=== PATIENT | male | born 1960 | race African-American/Black ===

== ENCOUNTER 2017-08-25 17:38 | Observation (INO) | payer MEDICARE ==
[2017-08-25] MEDS ORDERED: Nitroglycerin 2% Ointment 1 INCH/1 GM Packet ONE (18:28)
[2017-08-25 20:34] LABS: CKMB 0.3 ng/mL (0-6.6); Troponin I Less than 0.010 ng/mL (< 0.028)
[2017-08-25] MEDS ORDERED: Acetaminophen 325 MG TAB ONE (20:47)
--- NOTE | 2017-08-25 21:11 | HP ---
DATE OF ADMISSION: 08/25/2017 CHIEF COMPLAINT: Chest pain. HISTORY OF PRESENT ILLNESS: This is a 57-year-old young -[place]ish male who has a known histor y of COPD, coronary artery disease, and history of drug abuse. The patient was in his usual state of health until a few days ago he started noticing worsening nausea and vomiting with GI upset and head ache and he went to [facility] where he was diagnosed with influenza A being positive. Following , the patient was also having some chest pain with markedly elevated blood pressures and was in hyp ertensive emergency with blood pressures in 178/112. The patient was started on nitro drip and he wa s sent to [facility]. When the patient arrived here, the blood pressures were 112/88. His tropon ins were negative. He denied having any chest pain at this time, but he continues to have nausea and headache. He does complain of dizziness and has been throwing up a lot and also having diarrhea 2-3 times since this morning. He denies having any sick contacts, but he did mention he has not had a f constantine shot this season. He has a known history of smoking and has a remote history of chronic obstructi ve pulmonary disease. The patient has a history of drug abuse. He does smoke marijuana and he admit s to smoking marijuana recently. Most of his pain he complains of is left upper quadrant pain which he rates as 4/10 in intensity associated with nausea and vomiting. PAST MEDICAL HISTORY: History of thyroid cancer, remission, status post chemotherapy, history of claudia betic gastroparesis, type 2 diabetes mellitus, history of irritable bowel syndrome, hypertension, anx iety, and depression. PAST SURGICAL HISTORY: 1. Cholecystectomy. 2. Right shoulder rotator cuff repair. 3. Excision of a sinus mass. SOCIAL HISTORY: Smokes half pack a day. Occasionally, marijuana and alcohol use. FAMILY HISTORY: No significant family history of coronary artery disease or any cancers in the famil y. ALLERGIES: SULFA ALLERGIES, KETOROLAC, SULFAMETHOXAZOLE, TRAMADOL. HOME MEDICATIONS: 1. Albuterol sulfate. 2. Amlodipine. 3. Clonidine 0.1 mg daily. 4. Cyproheptadine. 5. Dicyclomine 20 mg p.o. q.i.d. 6. Esomeprazole 40 mg daily. 7. Fluoxetine 40 mg daily. 8. Ipratropium inhalation q.i.d. 9. Lisinopril 20 mg p.o. daily. 10. Lorazepam 2 mg p.o. t.i.d. 11. Ondansetron. 12. Oxcarbazepine 150 mg p.o. t.i.d. 13. Pregabalin 100 mg p.o. b.i.d. 14. Testosterone 200 mg IM q.14 days. REVIEW OF SYSTEMS: All 12 systems are reviewed with the patient thoroughly and found to be negative at this time. Constitutional: Weight loss or gain, sense of well-being, ability to conduct usual activities, exerc ise tolerance. Skin/Breast: Rash, itching, changes in hair growth or loss, nail changes, breast lumps, tenderness, swelling, nipple discharge. Eyes: Vision, double vision, tearing, blind spots, pain. ENT/Mouth: Headaches (location, time of onset, duration, precipitating factors), vertigo, lightheade dness, injury. Vision, double vision, tearing, blind spots, pain, nose bleeding, colds, obstruction, discharge, dental difficulties, gingival bleeding, dentures, neck stiffness, pain, tenderness, masses in thyroid or other areas. Cardiovascular: Precordial pain, substernal distress, palpitations, syncope, dyspnea on exertion, or thopnea, nocturnal paroxysmal dyspnea, edema, cyanosis, hypertension, heart murmurs, varicosities, ph lebitis, claudication. Respiratory: Pain, shortness of breath, wheezing, stridor, cough, hemoptysis, fever or night sweats. Gastrointestinal: Poor appetite, dysphagia, indigestion, abdominal pain, heartburn, eructation, naus ea, vomiting, hematemesis, jaundice, constipation, or diarrhea, abnormal stools (zeeshan-colored, tarry, bloody, greasy, foul smelling), flatulence, hemorrhoids, recent changes in bowel habits. Genitourinary: Urgency, frequency, dysuria, nocturia, hematuria, polyuria, oliguria, unusual (or anish nge in) color of urine, stones, hesitancy, change in the size of stream, dribbling, acute retention o r incontinence, libido, potency. Musculoskeletal: Pain, swelling, redness or heat of muscles or joints, limitation, of motion, muscul ar weakness, atrophy, cramps. Neurologic/Psychiatric: Convulsions, paralyses, tremor, incoordination, paresthesias, difficulties w ith memory of speech, sensory or motor disturbances, or muscular coordination (ataxia, tremor), emoti onal problems, anxiety, depression, previous psychiatric care, unusual perceptions, hallucinations. Allergy/Immunologic: Skin rash, anemia, bleeding tendency, polydipsia, polyuria, intolerance to heat or cold. PHYSICAL EXAMINATION: VITAL SIGNS: Blood pressure is 112/88, heart rate is 88, respiration is 18, saturation is 98%. GENERAL: The patient is moderately built and moderately nourished, does not appear to be in acute di stress at this time, is alert, awake, and oriented x3. HEENT: Atraumatic, normocephalic. PERRLA. Extraocular movements were intact. Oral mucosa pink and moist. CARDIOVASCULAR: S1, S2 normal. No murmurs, rubs, or gallops. LUNGS: Bilateral air entry was equal. No wheezing, no crackles. ABDOMEN: Soft, nontender. No guarding or rebound tenderness. Bowel sounds normal. MUSCULOSKELETAL: No calf tenderness. No pedal edema. EXTREMITIES: No joint tenderness, no joint swelling. SKIN: No cyanosis, no erythema, no rash, no pallor. NEUROLOGIC: Cranial nerve examination II through XII intact. No focal deficits were noted. LABORATORY DATA: WBC is 14,000, hemoglobin is 15.7, hematocrit is 43.9, platelets are 210. Sodium i s 133, potassium 4.3, chloride is 99, BUN 13 and creatinine is 1.34, blood sugar is 109. UA was negative for any urinary tract infection. Chest x-ray was done today showing no evidence of an acute cardiopulmonary process. ASSESSMENT AND PLAN: 1. Acute chest pain. 2. Acute hypertensive urgency. 3. Influenza A infection. 4. Leukocytosis. 5. Severe dehydration. PLAN: 1. The plan is to start the patient on Tamiflu 75 mg p.o. b.i.d. and will also start him on levoflox acin 500 mg IV daily and will closely monitor. The patient did not have any respiratory problems at this time. We will do albuterol nebulizer treatments as needed. 2. The patient has hypertensive emergency where he presented initially, but his blood pressures did come down very well following a nitro drip. The patient will be monitored with serial troponins over night and we will start the patient on Coreg for the chest pain and will plan for a nuclear stress te st the following morning. 3. The patient has evidence of leukocytosis with no evidence of any pneumonia was noted. Most likel y this could be dehydration secondary to severe vomiting and diarrhea. We will continue with IV flui ds at this time with 75 an hour and will closely monitor. 3. DVT prophylaxis. Lovenox 40 mg subcu daily. I spent 75 minutes with this patient.
[2017-08-25 23:31] LABS: Troponin I 0.011 ng/mL (< 0.028)
[2017-08-25] MEDS ORDERED: Nitroglycerin 2% Ointment 1 INCH/1 GM Packet TOP SCH (23:45)
[2017-08-25] MEDS ORDERED: HYDROcodone/Acetaminophen 5/325 mg Tablet ONE (23:47)
[2017-08-25] MEDS ORDERED: Acetaminophen 325 MG TAB PO PRN (23:49)
[2017-08-25] MEDS ORDERED: Nitroglycerin 0.4 MG TAB (25 Tab Bottle) PO PRN (23:49)
[2017-08-25] MEDS ORDERED: Ondansetron ODT 4 MG TAB PO PRN (23:49)
[2017-08-25] MEDS ORDERED: HYDROcodone/Acetaminophen 7.5/325 mg Tablet PO PRN (23:49)
[2017-08-25] MEDS ORDERED: Ondansetron HCl/PF 4 MG/2 ML Vial IVP PRN (23:49)
[2017-08-25] MEDS ORDERED: Pepto Bismol Chew TAB PO PRN (23:49)
[2017-08-26] MEDS ORDERED: Levofloxacin 500 mg/D5W 100 ml Premix Bag ONE (00:56)
[2017-08-26 04:16] LABS: Anion Gap 15 mmol/L (10-20); BUN (Urea Nitrogen) 18 mg/dL (8.4-25.7); Calc. Creatinine Clearance 0 mL/min (70-130); Calcium 8.8 mg/dL (7.8-10.44); Carbon Dioxide 20 mmol/L (22-29); Cardiac Risk 4.2 (Less than 4.5); Chloride 102 mmol/L (98-107); Cholesterol 137 mg/dl (< 200 Desired); Estimated GFR-MDRD 73; Glucose 104 mg/dL (70-105); HDL Cholesterol 33 mg/dL (>60 Neg Risk); LDL Cholesterol, Calculated 81 mg/dL; Potassium 4.3 mmol/L (3.5-5.1); Sodium 133 mmol/L (136-145); Triglycerides 117 mg/dL (Less than 150)
[2017-08-26 04:24] LABS: Band 2 % (5-11); Eosinophils 2 % (0-10); Hemoglobin 13.5 g/dL (14.0-18.0); Lymphocytes 22 % (21-51); MDiff Complete? YES; Mean Corpuscular HGB CONC 34.1 g/dL (32.0-36.0); Mean Corpuscular Hemoglobin 30.2 pg (27.0-31.0); Mean Corpuscular Volume 88.6 fl (80.0-94.0); Mean Platelet Volume 8.8 fL (7.4-10.4); Monocytes 13 % (0-10); Neutrophil 59 % (42-75); PLT Morphology Comment Appears Adequate; Platelet Count 184 thou/uL (130-400); RBC Distribution Width 13.2 % (11.5-14.5); RBC Morphology Normal; Reactive Lymphocytes 2 % (0-10); Red Blood Cell (RBC) Count 4.46 mill/uL (4.70-6.10); White Blood Cell (WBC) Count 8.7 thou/uL (4.8-10.8)
[2017-08-26] MEDS ORDERED: HYDROcodone/Acetaminophen 5/325 mg Tablet ONE (04:58)
[2017-08-26 08:07] VITALS: BMI 32.8
[2017-08-26] MEDS: Oseltamivir 75 MG CAP PO SCH (08:39)
[2017-08-26] MEDS: Nitroglycerin 2% Ointment 1 INCH/1 GM Packet TOP SCH ×3 (08:39→22:59)
[2017-08-26] MEDS: Aspirin 325 MG TAB PO SCH (09:30)
[2017-08-26] MEDS: Carvedilol 3.125 MG TAB PO SCH ×2 (09:31→22:18)
[2017-08-26] MEDS: Enoxaparin Sodium 40 MG/0.4 ML SYRINGE SC SCH (09:31)
[2017-08-26] MEDS: HYDROcodone/Acetaminophen 5/325 mg Tablet PO PRN ×2 (09:39→14:02)
--- NOTE | 2017-08-26 16:24 | PDOC.PN ---
- Subjective Encounter Start Date: 08/26/17 Encounter Start Time: 08:25 No further CP. NM not wanting to do stress due to flu positive status, admin working it out. no F/C, no N/V/d/C. achy. asking for home meds 10 point ROS performed and neg for all systems except as per HPI - Objective Resuscitation Status: Resuscitation Status FULL:Full Resuscitation MAR Reviewed: Yes Vital Signs & Weight: Vital Signs (12 hours) Temp Pulse Pulse Pulse Resp BP BP 08/26/17 12:05 97.7 F 76 18 08/26/17 11:17 70 72 146/71 H 147/86 H 08/26/17 11:15 08/26/17 08:10 97.5 F L 72 16 08/26/17 07:44 97.4 F L 76 16 BP Pulse Ox Pulse Ox Pulse Ox 08/26/17 12:05 133/70 96 08/26/17 11:17 97 97 08/26/17 11:15 99 08/26/17 08:10 08/26/17 07:44 146/79 H 99 Weight Weight 222 lb Result Diagrams: 08/26/17 03:32 08/26/17 03:32 Radiology Reviewed by me: Yes EKG Reviewed by me: Yes Phys Exam - Physical Examination Constitutional: NAD HEENT: PERRLA, moist MMs, sclera anicteric, oral pharynx no lesions Neck: no nodes, no JVD, supple, full ROM Respiratory: no wheezing, no rales, no rhonchi, clear to auscultation bilateral Cardiovascular: RRR, no significant murmur, no rub Gastrointestinal: soft, non-tender, no distention, positive bowel sounds Musculoskeletal: no edema, pulses present Neurological: non-focal, normal sensation, moves all 4 limbs Lymphatic: no nodes Psychiatric: normal affect, A&O x 3 Skin: no rash, normal turgor, cap refill <2 seconds Dx/Plan (1) Chest pain Code(s): R07.9 - CHEST PAIN, UNSPECIFIED Status: Acute Qualifiers: Chest pain type: chest pain on breathing Qualified Code(s): R07.1 - Chest pain on breathing; R07.81 - Pleurodynia (2) Chronic abdominal pain Code(s): R10.9 - UNSPECIFIED ABDOMINAL PAIN; G89.29 - OTHER CHRONIC PAIN Status: Chronic Comment: acute on chronic (3) Hyponatremia Code(s): E87.1 - HYPO-OSMOLALITY AND HYPONATREMIA Status: Acute (4) Influenza A Code(s): J10.1 - FLU DUE TO OTH IDENT INFLUENZA VIRUS W OTH RESP MANIFEST Status: Acute (5) Nausea & vomiting Code(s): R11.2 - NAUSEA WITH VOMITING, UNSPECIFIED Status: Acute (6) Depression Code(s): F32.9 - MAJOR DEPRESSIVE DISORDER, SINGLE EPISODE, UNSPECIFIED Status : Chronic Qualifiers: Depression Type: unspecified Qualified Code(s): F32.9 - Major depressive disorder, single episode, unspecified (7) Diabetes mellitus Code(s): E11.9 - TYPE 2 DIABETES MELLITUS WITHOUT COMPLICATIONS Status: Chronic Qualifiers: Diabetes mellitus type: type 2 Diabetes mellitus complication status: without complication Diabetes mellitus fdc insulin use: without dedicated intermodal truck driver use Qualified Code(s): E11.9 - Type 2 diabetes mellitus without complications (8) Gastroparesis Code(s): K31.84 - GASTROPARESIS Status: Chronic (9) Hypertension Code(s): I10 - ESSENTIAL (PRIMARY) HYPERTENSION Status: Chronic Qualifiers: Hypertension type: essential hypertension Qualified Code(s): I10 - Essential (primary) hypertension - Plan * . if no stres, ask cardiology to eval to make sure a stress is needed, and if so, will push for it. NPO for now. ifno stres,s then allow to eat and NPO after MN
[2017-08-26] MEDS ORDERED: Ondansetron ODT 4 MG TAB PO PRN (16:47)
[2017-08-26] MEDS: HYDROcodone/Acetaminophen 10/325 mg Tablet PO SCH ×2 (17:01→22:15)
[2017-08-26] MEDS: Lorazepam 1 MG TAB PO SCH ×2 (17:02→22:57)
[2017-08-26] MEDS: Mometasone/Formoterol 120 PUFF INHALER INH SCH (19:05)
--- NOTE | 2017-08-26 20:10 | CON ---
DATE OF CONSULTATION: 08/26/2017 REASON FOR CONSULTATION: 1. Epigastric pain. 2. History of coronary artery disease. HISTORY OF PRESENT ILLNESS: Mr. Mehdi Cardona is a 57-year-old gentleman who is in the hospital at [facility] for observation. The patient came to the hospital yesterday. He had increasing nausea, vomiting, GI upset and headach e. He was diagnosed with influenza A. There is some report about chest pain, but the patient does n ot recall that now he says he is epigastric, also hypertensive. He was sent here. PAST MEDICAL HISTORY: 1. He has a history of coronary artery disease, mild, best treated medically on catheterization in 2 009. 2. History of cholecystectomy. 3. Right shoulder rotator cuff repair. SOCIAL HISTORY: Smokes half pack of cigarettes per day, marijuana, alcohol, and cocaine. He says th e last cocaine that he reports is 07/28. ALLERGIES: SULFA. HOME MEDICATIONS: Albuterol, amlodipine, lisinopril, testosterone every 14 days. REVIEW OF SYSTEMS: Constitutional: No significant weight gain or loss. Vision: No changes. Heari ng: No changes. Pulmonary: No cough or wheezing. Gastrointestinal: No nausea, vomiting, diarrhea . Skin: No rashes. Neurologic: No unilateral weakness or numbness. Psychiatric: No unusual depr ession or anxiety. Hematologic: No unusual bruising. Genitourinary: No burning with urination. PHYSICAL EXAMINATION: GENERAL: A pleasant 57-year-old -[place] man. VITAL SIGNS: Blood pressure 146/71, pulse 76 regular. HEENT: Eyes: Sclerae nonicteric. Mouth mucous membranes moist. NECK: Supple, no lymphadenopathy. LUNGS: Clear, no wheezing, rales, or rhonchi. CARDIAC: Normal S1, normal S2. There is no murmur, rub, or gallop. ABDOMEN: Soft, nontender. EXTREMITIES: There is no edema. Peripheral pulses are intact. PERTINENT LABORATORY DATA: Troponin less than 0.010. LDL cholesterol 81. EKG did have sinus tachyc ardia earlier and normal rhythm. Reviewing the laboratory data, it was positive for cocaine earlier this month. ASSESSMENT: 1. Hypertension 2. Epigastric pain. 3. History of coronary artery disease. 4. Negative cardiac enzymes. 5. Influenza. PLAN: 1. Would proceed to stress testing prior to discharge. 2. Repeat drug tests toxicology screen, urine drug screen.
[2017-08-26] MEDS ORDERED: cloNIDine 0.1 MG TAB PO SCH (21:00)
[2017-08-26] MEDS: Dicyclomine 20 MG TAB PO SCH (22:16)
[2017-08-26] MEDS: Pregabalin 50 MG CAP PO SCH (22:17)
[2017-08-26] MEDS: Cyproheptadine HCl 2 MG/5 ML UDCUP PO SCH (22:19)
[2017-08-26] MEDS ORDERED: Lorazepam 1 MG TAB PO SCH (22:30)
[2017-08-26] MEDS: OXcarbazepine 300 MG TAB PO SCH (22:58)
[2017-08-26] MEDS ORDERED: Carvedilol 3.125 MG TAB PO SCH (23:45)
[2017-08-26] MEDS ORDERED: Famotidine/PF 20 mg/2ml Vial SLOW IVP SCH (23:45)
[2017-08-27 01:21] LABS: Medtox Reader # READER 1; THC/Cannabinoid Screen Detected (NotDetected)
[2017-08-27 01:22] LABS: Amphetamine Not Detected (NotDetected); Barbiturates Screen Not Detected (NotDetected); Benzodiazepine Screen Detected (NotDetected); Cocaine Metabolite Screen Detected (NotDetected); Medtox Control Line Valid? VALID (VALID); Methadone Not Detected (NotDetected); Methamphetamine Not Detected (NotDetected); Opiate Screen Detected (NotDetected); Oxycodone Screen Not Detected (NotDetected); Phencyclidine (PCP) Not Detected (NotDetected); Tricyclic Screen Not Detected (NotDetected)
[2017-08-27] MEDS: Oseltamivir 75 MG CAP PO SCH (02:23)
[2017-08-27 04:57] VITALS: TEMP 98.5
[2017-08-27] MEDS: Nitroglycerin 2% Ointment 1 INCH/1 GM Packet TOP SCH (06:08)
[2017-08-27] MEDS: Mometasone/Formoterol 120 PUFF INHALER INH SCH (07:54)
[2017-08-27] MEDS ORDERED: FLUoxetine HCl 20 MG CAP PO SCH (09:00)
[2017-08-27] MEDS ORDERED: Lisinopril 20 MG TAB PO SCH (09:00)
[2017-08-27] MEDS ORDERED: Amlodipine 5 MG TAB PO SCH (09:00)
[2017-08-27] MEDS ORDERED: Famotidine/PF 20 mg/2ml Vial SLOW IVP SCH (09:00)
[2017-08-27] MEDS ORDERED: Oseltamivir 75 MG CAP PO SCH (09:00)
[2017-08-27] MEDS: Pregabalin 50 MG CAP PO SCH (09:05)
[2017-08-27] MEDS: Dicyclomine 20 MG TAB PO SCH (09:06)
[2017-08-27] MEDS: Lorazepam 1 MG TAB PO SCH (09:07)
[2017-08-27] MEDS: Aspirin 325 MG TAB PO SCH (09:08)
[2017-08-27] MEDS: Enoxaparin Sodium 40 MG/0.4 ML SYRINGE SC SCH (09:08)
[2017-08-27] MEDS: HYDROcodone/Acetaminophen 10/325 mg Tablet PO SCH (09:08)
[2017-08-27] MEDS: Carvedilol 3.125 MG TAB PO SCH (09:10)
[2017-08-27] MEDS: Cyproheptadine HCl 2 MG/5 ML UDCUP PO SCH (10:23)
[2017-08-27] MEDS: OXcarbazepine 300 MG TAB PO SCH (10:25)
[2017-08-27 11:57] VITALS: BP 167/75
--- NOTE | 2017-08-27 16:06 | DIS ---
DATE OF ADMISSION: 08/25/2017 DATE OF DISCHARGE: 08/27/2017 PRIMARY CARE PHYSICIAN: Listed as none. DISCHARGE DIAGNOSES: 1. Cocaine abuse. 2. Chest pain. 3. Hypertensive urgency. 4. Marijuana abuse. 5. Diabetes mellitus type 2. 6. Chronic pain. CONSULTATIONS: Cardiology, Dr. Maldonado Farias, 08/26/2017. PROCEDURES: None. We tried to obtain a nuclear stress test, however, a nuclear lab refused due to flu status. When we finally gotten it set up, the patient drink coffee. He was chest pain free and agreed to followup if he had chest pain while not taking cocaine. HISTORY AND PHYSICAL: Mr. Cardona is a 57-year-old male with a history of thyroid can cer in remission, diabetes mellitus type 2 with gastroparesis, irritable bowel syndrome, hypertension , anxiety, depression, and polysubstance abuse, who presents to the emergency department for chest pa in. The patient has been using multiple substances and developed worsening nausea and vomiting and c hest pain. He went to [place] [facility] at [facility], who was diagnosed with influenza A positiv e. He is having some chest pain and markedly elevated blood pressures and was diagnosed with hyperte nsive urgency and transferred here for further workup. He was initially put on nitro drip and transf erred. On arrival, blood pressure was normal. Troponins were negative and he was chest pain free. He was taken off nitro drip and converted to oral medications. We were called for admission. HOSPITAL COURSE: The patient was seen and examined. He was admitted by Dr. Bello. Serial cardiac b iomarkers were obtained. The patient was continued on Tamiflu, and the patient was continued on home medications with the addition of Coreg. Overnight 08/25/2017 to 08/26/2017, the cardiac biomarkers remain negative. Urine drug screen came back positive for THC, cocaine, benzos, and opiates. The pa tient did admit to using multiple substances. He remained chest pain free. A nuclear stress test wa s ordered, the patient was unable to get one due to being flu positive. After deliberation between t he multiple departments, the patient was finally set up for a stress test the morning of 08/27/2017. Dr. Farias was consulted to ensure we needed a stress test given his flu status positivity. He agree d the patient would benefit from stress testing. Overnight 08/17/2017 to 08/27/2017, the patient was back to his normal baseline. Blood pressure is w ell controlled. The patient did not adhere to the n.p.o. policy and drink coffee and thus was not ab le to get his stress testing. He had no further chest pain. He was discharged home with instruction s to return to the emergency department via chest pain while not using cocaine and is otherwise set u p to follow with Dr. Farias for outpatient stress testing in 3-4 weeks. PHYSICAL EXAMINATION: The patient was seen and examined on the day of discharge. Discharge plan and disposition was discussed with the patient [id number] at the bedside. DISCHARGE MEDICATIONS: 1. Coreg 3.125 mg p.o. b.i.d. 2. Nitroglycerin 0.4 mg sublingual every 5 minutes p.r.n. chest pain. 3. Tamiflu 75 mg p.o. b.i.d. for 7 more doses. 4. Prozac 40 mg daily. 5. Albuterol sulfate MDI 2 puffs inhaled every 6 hours as needed for shortness of breath. 6. Ativan 2 mg t.i.d. p.r.n. 7. Lisinopril 20 mg p.o. daily. 8. Cyproheptadine 3 mL syrup 3 times daily. 9. Amlodipine 5 mg daily. 10. Advair Diskus 250/50 one puff b.i.d. 11. Combivent Respimat 2 puffs 4 times a day as needed. 12. Clonidine 0.1 mg p.o. at bedtime. 13. Testosterone cypionate 200 mg intramuscularly every 14 days. 14. Zofran 4 mg p.o. q.8 hours as needed. 15. Dicyclomine 20 mg p.o. t.i.d. 16. Carbamazepine 150 mg p.o. t.i.d. 17. Nexium 40 mg daily. 18. Lyrica 100 mg p.o. b.i.d. 19. Hydrocodone/acetaminophen 10/325 one tab 4 times a day. DISCHARGE ACTIVITY: Per cardiopulmonary limits. DISCHARGE DIET: Heart healthy diabetic diet recommended. FOLLOWUP APPOINTMENTS 1. Establish with a primary care physician as soon as possible. 2. Dr. Farias in 3-4 weeks. DISCHARGE CONDITION: Stable. DISPOSITION: Will be discharged home via private vehicle with outpatient followup.
--- NOTE | 2017-08-31 17:25 | EKG ---
Test Reason : CP Blood Pressure : / mmHG Vent. Rate : 090 BPM Atrial Rate : 090 BPM P-R Int : 164 ms QRS Dur : 066 ms QT Int : 360 ms P-R-T Axes : 046 024 030 degrees QTc Int : 440 ms Normal sinus rhythm Nonspecific ST and T wave abnormality Abnormal ECG Confirmed by DI LOPEZ, ALEX Zavala ([id number]), graphic editor VIK MONTANA ([id number]) on 08/31/2017 5:25:04 PM Referred By: DI Confirmed By:ALEX SEVILLA MD
== END 2017-08-27 13:26 | disposition home or self-care (01) ==
LOC: ERS 17:38 → ERHOLD 18:41 → 2SW 08-26 07:44
PROVIDERS: ADMIT Family Medicine; ATTEND Family Medicine
DX: F14.10 Cocaine abuse, uncomplicated (principal); R07.9 Chest pain, unspecified; I16.0 Hypertensive urgency; F12.10 Cannabis abuse, uncomplicated; G89.29 Other chronic pain; C73 Malignant neoplasm of thyroid gland; E11.43 Type 2 diabetes mellitus with diabetic autonomic (poly)neuropathy; K31.84 Gastroparesis; K58.9 Irritable bowel syndrome, unspecified; I10 Essential (primary) hypertension; F32.9 Major depressive disorder, single episode, unspecified; F41.9 Anxiety disorder, unspecified; J10.1 Influenza due to other identified influenza virus with other respiratory manifestations; J44.9 Chronic obstructive pulmonary disease, unspecified; F17.210 Nicotine dependence, cigarettes, uncomplicated; D72.829 Elevated white blood cell count, unspecified; E86.0 Dehydration; I25.10 Atherosclerotic heart disease of native coronary artery without angina pectoris; Z79.51 Long term (current) use of inhaled steroids; Z79.899 Other long term (current) drug therapy; Z88.2 Allergy status to sulfonamides; Z88.6 Allergy status to analgesic agent; Z88.5 Allergy status to narcotic agent; Z88.1 Allergy status to other antibiotic agents; Z90.49 Acquired absence of other specified parts of digestive tract; Z98.890 Other specified postprocedural states; Z72.89 Other problems related to lifestyle; Z92.21 Personal history of antineoplastic chemotherapy
CPT/HCPCS: 80048; 80061; 80306; 82553; 84484; 85025; 93005; 93306; 94640 ×2; 94664; 94760 ×2; 96365; 96366; 96375; 97139 ×3; 99285; G0378 ×2; G8978; G8979; G8980; G8987; G8988; G8989; 36415; J1650; J1956; S0028

== ENCOUNTER 2019-06-02 12:25 | Inpatient (IN) | payer MEDICARE ==
[2019-06-02] MEDS ORDERED: Acetaminophen 500 MG TAB ONE (13:50)
[2019-06-02 15:22] LABS: #Basophils 0.1 thou/uL (0.0-0.2); #Monocytes 0.6 thou/uL (0.11-0.59); #Neutrophils 3.9 thou/uL (1.40-6.50); %Basophils 0.8 % (0.0-1.0); %Eosinophils 0.6 % (0.0-10.0); %Lymphocytes 29.7 % (21.0-51.0); %Monocytes 9.6 % (0.0-10.0); %Neutrophils 59.2 % (42.0-75.0); Hemoglobin 16.4 g/dL (14.0-18.0); Mean Corpuscular HGB CONC 34.2 g/dL (32.0-36.0); Mean Corpuscular Hemoglobin 30.7 pg (27.0-31.0); Mean Corpuscular Volume 89.7 fL (78.0-98.0); Mean Platelet Volume 8.2 fL (7.4-10.4); Platelet Count 282 thou/uL (130-400); RBC Distribution Width 12.8 % (11.5-14.5); Red Blood Cell (RBC) Count 5.33 mill/uL (4.70-6.10); White Blood Cell (WBC) Count 6.6 thou/uL (4.8-10.8)
[2019-06-02] MEDS ORDERED: Dextrose 5% in Water 1,000 ML IV PRN (15:34)
[2019-06-02] MEDS ORDERED: Dicyclomine 20 MG TAB PO PRN (15:34)
[2019-06-02] MEDS ORDERED: HumaLOG 300 UNITS/3 ML VIAL SC PRN (15:34)
[2019-06-02] MEDS ORDERED: Ondansetron PF 4 MG/2 ML Vial IVP PRN (15:34)
[2019-06-02] MEDS ORDERED: Non-Formulary Item 1 EACH (Ipratropium/Albuterol Sulfate [Combivent Respimat] 2 PUFF) IH PRN (15:34)
[2019-06-02] MEDS ORDERED: Guaifenesin DM 100-10/5 ML UDCUP PO PRN (15:34)
[2019-06-02] MEDS ORDERED: PROVENTIL INHALER 6.7 G (200 INHALATIONS) INH PRN (15:34)
[2019-06-02] MEDS ORDERED: Dextrose 50% Abboject 50 ML SYRINGE SLOW IVP PRN (15:34)
[2019-06-02] MEDS ORDERED: Pantoprazole 80 MG, Admixture Fee 1 EACH in Sodium Chloride 0.9% 100 ML IVP SCH (15:45)
[2019-06-02 17:18] LABS: Alcohol Less than 10 mg/dL (Less than 10); Salicylate Less than 8.0 mg/dL (15.0-30.0)
--- NOTE | 2019-06-02 17:23 | CT ---
EXAM: CT brain without contrast HISTORY: Code Green. Seizure versus stroke. COMPARISON: 07/31/2017 TECHNIQUE: Multiple contiguous axial images were obtained and a CT of the brain without contrast. FINDINGS: The brain is normal in morphology and attenuation without focal lesions or confluent areas of infarction. There is no evidence of hydrocephalus, intracranial hemorrhage, or extra-axial fluid collection. The calvarium and overlying soft tissues are unremarkable. The visualized paranasal sinuses and masto id air cells are well aerated. IMPRESSION: No evidence of acute intracranial abnormality Dr. Dyson Notified of findings at 5:21 PM on 06/02/2019.
[2019-06-02] MEDS: Sodium Chloride 0.9% 1,000 ML IV SCH (18:05)
[2019-06-02] MEDS: Lorazepam 1 MG TAB PO PRN (18:05)
[2019-06-02] MEDS: Mometasone 200 MCG HFA INHALER INH SCH (18:36)
[2019-06-02] MEDS ORDERED: Lorazepam 2 MG/ML VIAL SLOW IVP PRN (19:02)
[2019-06-02] MEDS: HYDROcodone/Acetaminophen 10/325 mg Tablet PO PRN (19:34)
--- NOTE | 2019-06-02 19:39 | HP ---
REASON FOR ADMISSION: GI bleed. HISTORY OF PRESENTING ILLNESS: The patient gives history of having upper abdominal pain in both quadrants from last 4 days. He states it got worse in the morning. He also mentions that he has had watery black stools nearly 8 episodes from morning. He went to [facility], from where he was transferred here. He has had a Hemoccult blood test done which was positive. Mr. Cardona mentions that he has lost nearly 60 pounds in the last 9 months. He was a size 42 and now is size 32. He was weighing 242 pounds before, currently weighs around 81 kg/172 lbs now. No nausea or vomiting. Has not had any black stools after arrival here. He is wanting pain medications now. The patient has had upper endoscopy in March of 2017, where he was found to have erosive esophagitis, nonerosive duodenitis and gastritis then by Dr. Miles. No complaints of cough or expectoration or fever. PAST MEDICAL AND SURGICAL HISTORY: History of irritable bowel syndrome; diabetes mellitus type 2; history of hemosiderosis; history of bladder cancer, which he is in remission from 2011, he was seeing Dr. Sabillon for the same; sternotomy for removal of thymus tumor; history of COPD; cholecystectomy; right shoulder surgery; hypertension; anxiety disorder; chronic pain syndrome; and depression. CURRENT MEDICATIONS: The patient is on; 1. Norvasc 5 mg daily. 2. Lisinopril unknown dose daily. 3. Prozac 60 mg p.o. q.a.m. 4. Nexium 40 mg p.o. daily. 5. Lorazepam 2 mg 3 times daily. 6. Januvia daily. 7. K-Dur daily. 8. [place] 5/325 mg p.o. q.6 hourly p.r.n. 9. Lyrica, he has not been taking this for last 30 days now, as he ran out of prescriptions. 10. Bentyl 10 mg twice daily. ALLERGIES: TO BACTRIM, TORADOL, AND TRAMADOL. PERSONAL HISTORY: He drinks anywhere from 2 to 4 beers daily. Uses marijuana and last use cocaine 5 days back. Smokes occasionally. The patient is . He is living with his parents. FAMILY HISTORY: Both parents are living. Mother is 85 years old. Father is 86 years old. CODE STATUS: Full. Power of trade mark attorney is his mother. REVIEW OF SYSTEMS: CONSTITUTIONAL: Negative for weight loss or gain, ability to conduct usual activities. SKIN: Negative for rash, itching. EYES: Negative for double vision, pain. ENT/MOUTH: Negative for nose bleeding, neck stiffness, pain, tenderness. CARDIOVASCULAR: Negative for palpitations, dyspnea on exertion, orthopnea. RESPIRATORY: Negative for shortness of breath, wheezing, cough, hemoptysis, fever or night sweats. GASTROINTESTINAL: Negative for poor appetite, abdominal pain, heartburn, nausea , vomiting, constipation, or diarrhea. GENITOURINARY: Negative for urgency, frequency, dysuria, nocturia. MUSCULOSKELETAL: Negative for pain, swelling. NEUROLOGIC/PSYCHIATRIC: Negative for anxiety, depression. ALLERGY/IMMUNOLOGIC: Negative for skin rash, bleeding tendency. PHYSICAL EXAMINATION: GENERAL: The patient is a 59-year-old male, who is currently not in any acute distress. VITAL SIGNS: Blood pressure 170/110 on arrival, subsequent blood pressure was 110/80; pulse 94 per minute, respiratory rate 20 per minute; temperature 102.4 degrees on arrival; and saturating 100% on room air. NECK: Supple. No elevated JVD. HEENT: Eyes; extraocular muscles intact. Pupils are reacting to light. Oral cavity, mucous membranes are moist. No exudates or congestion. CARDIOVASCULAR SYSTEM: S1 and S2 heard. Regular rhythm. RESPIRATORY SYSTEM: Air entry 1+ bilateral. Scattered rhonchi plus. No rales. ABDOMEN: Soft. Bowel sounds heard. Mild tenderness in the upper quadrant, mostly voluntary guarding. No rigidity or guarding. EXTREMITIES: No peripheral edema or calf tenderness. VASCULAR SYSTEM: Peripheral pulses 1+ bilateral. No ischemic ulcerations or gangrene. CENTRAL NERVOUS SYSTEM: No gross focal deficits noted. The patient is alert, awake, and oriented well. PSYCHIATRIC SYSTEM: The patient's mood is euthymic. No hallucinations or delusions. LABORATORY DATA: His CT aortic dissection protocol done shows no evidence of dissection or aneurysm. Small hiatal hernia. No obvious bowel abnormalities were seen. CT brain shows no evidence of acute intracranial abnormality. White count of 6, H and H 16 and 52, platelet count 292 with 56% neutrophils, MCV is 92. PT/ INR and PTT within normal limits. Serum bicarb 21, BUN 11, creatinine 0.9, and serum glucose 104. Liver enzymes within normal limits. First set of cardiac enzymes are negative. Lipase is 27. Liver enzymes are within normal limits. Plasma alcohol less than 10. Stool occult blood is positive. CLINICAL IMPRESSION AND PLAN: The patient will be admitted to stroke unit as the patient developed an episode of seizure after being admitted to medical floor. This is tonic colonic and had a subsequent CAT scan of the brain done, which did not reveal any acute intracranial abnormality. Likely, this is due to his lorazepam withdrawal and will be placed on 2 mg 3 times daily p.r.n. for that. I have re- examined him after his seizure episode and he is fully oriented, in room 209 in stroke unit. We will obtain H and H q.6 hourly and GI consultation with Dr. Watson, who is application systems architect will be obtained. His initial hemoglobin is 15 g. He has had prior history of erosive esophagitis and nonerosive gastritis and duodenitis. The last upper endoscopy was in March of [address] Miles. We will continue his Norvasc, Coreg, albuterol inhaler, Bentyl, and Asmanex inhaler. He will be on Protonix drip and normal saline at 80 mL per hour. We will also place him on banana bag at 70 mL per hour in view of his drinking 3 to 4 cans of beer daily with current seizure episode as well. He will not be placed on any seizure medications for now. This likely is due to medication withdrawal. The patient admitted to not taking his lorazepam from morning. We will obtain a urine drug screen as well. He has admitted to using cocaine 5 days back along with marijuana. We will continue to closely monitor him with seizure precautions on stroke unit. Job ID: [id number] [facility]ENT[facility]osas
[2019-06-02 21:41] LABS: Hemoglobin 15.7 g/dL (14.0-18.0)
[2019-06-02] MEDS: Multivitamins, Adult 10 ML, Folic Acid 1 MG, Thiamine HCl 100 MG in Dextrose 5 %-0.45 %... IV SCH (21:58)
[2019-06-02] MEDS: Carvedilol 3.125 MG TAB PO SCH (21:58)
[2019-06-02 23:37] LABS: Amphetamine Not Detected (NotDetected); Barbiturates Screen Not Detected (NotDetected); Benzodiazepine Screen Detected (NotDetected); Cocaine Metabolite Screen Detected (NotDetected); Medtox Control Line Valid? VALID (VALID); Medtox Reader # READER 4; Methadone Not Detected (NotDetected); Methamphetamine Not Detected (NotDetected); Opiate Screen Not Detected (NotDetected); Oxycodone Screen Not Detected (NotDetected); Phencyclidine (PCP) Not Detected (NotDetected); THC/Cannabinoid Screen Detected (NotDetected); Tricyclic Screen Not Detected (NotDetected)
--- NOTE | 2019-06-02 23:54 | CON ---
DATE OF CONSULTATION: 06/02/2019 REASON FOR CONSULTATION: Melena. HISTORY OF PRESENT ILLNESS: I was asked to see the patient by admitting hospitalist, Dr. Dyson. The patient apparently had been seen in outside emergency room for complaints of melena. This was in [place]. He complained of 3-4 days of epigastric pain and then some black stool. He had noted taking some Pepto-Bismol. He was found to be Hemoccult-positive. He was transferred to this hospital. Here, the same history was retrieved. His hemoglobin had been 16.9 at 9 this morning. On arrival here in the afternoon, it was 16.4. He had no further bowel movements. The patient had a previous EGD at this hospital for left upper quadrant abdominal pain, which was normal except for mild gastritis, nonerosive duodenitis in 03/2017. He had previous upper and lower endoscopies in 2013 at the [facility], apparently there were no significant findings. He denies taking NSAIDs. He still smokes a bit and he also uses cocaine . Presently, he feels a little better. PAST MEDICAL HISTORY: Upper endoscopy in 2016, upper and lower endoscopies in 12/2013 with some hyperplastic polyps in the sigmoid colon and reactive gastropathy on EGD. He has diabetes, hypertension, history of bladder cancer, and irritable bowel. PAST SURGERY HISTORY: Cholecystectomy, right shoulder surgery, sinus surgery. SOCIAL HISTORY: As per HPI. ALLERGIES: SULFA. FAMILY HISTORY: Negative for GI disease. MEDICATIONS: At home; 1. Norvasc. 2. Lisinopril. 3. Prozac. 4. Nexium. 5. Lorazepam. 6. Januvia. 7. K-Dur. 8. [place]. 9. Lyrica. 10. He takes Bentyl at times. ALLERGIES: BACTRIM, TORADOL, TRAMADOL. FAMILY HISTORY: Parents are living at 85 and 86. REVIEW OF SYSTEMS: Negative for chest pain, shortness of breath, dyspnea on exertion. Positive for intermittent abdominal pain. Negative for dysuria, frequency, urgency, fever, chills, weight loss, change in appetite. PHYSICAL EXAMINATION: GENERAL: The patient is resting comfortably in bed. He is in no distress. He is alert and oriented to person, place, and time. VITAL SIGNS: Pulse is 77-104, blood pressure 161/102. LUNGS: Clear. HEART: Regular rate and rhythm without clicks or murmurs. ABDOMEN: Soft and nontender. There is no rebound. There is no guarding. EXTREMITIES: No clubbing, cyanosis, edema. LABORATORY DATA: Hemoglobin here at 2100 hours is 15.7. INR is 1. Comprehensive metabolic profile for BUN and creatinine of 11 and 0.9, comprehensive metabolic profile is otherwise normal. Lipase was 27. Lactic acid 1.2. Urine drug screen today is pending. Apparently, a CT dissection protocol was performed on 06/02/2019, it showed no aneurysm or dissection, small hiatal hernia. No obvious abnormalities. ASSESSMENT: 1. Reported melena with hemoglobin of over 15. 2. Cocaine drug abuse. 3. Prior endoscopies in 2017 and 2013 with no significant findings. RECOMMENDATIONS: 1. Continue PPIs. 2. Full liquid diet. 3. Observation. No plans for endoscopy at this point in time. 4. Await drug screen. I suspect that his abdominal pain is probably related to chronic cocaine use. Job ID: [id number]
[2019-06-03] MEDS: Acetaminophen 325 MG TAB PO PRN ×2 (00:10→13:44)
[2019-06-03] MEDS: Lorazepam 1 MG TAB PO PRN ×3 (02:50→15:47)
[2019-06-03 04:43] LABS: Hemoglobin 14.6 g/dL (14.0-18.0)
[2019-06-03 05:02] LABS: Anion Gap 11 mmol/L (10-20); BUN (Urea Nitrogen) 9 mg/dL (8.4-25.7); Calc. Creatinine Clearance 93 mL/min (70-130); Calcium 8.8 mg/dL (7.8-10.44); Carbon Dioxide 23 mmol/L (22-29); Chloride 99 mmol/L (98-107); Estimated GFR-MDRD Greater than 90; Glucose 114 mg/dL (70-105); Potassium 3.7 mmol/L (3.5-5.1); Sodium 129 mmol/L (136-145)
[2019-06-03] MEDS: Sodium Chloride 0.9% 1,000 ML IV SCH ×2 (06:22→18:45)
[2019-06-03] MEDS: Mometasone 200 MCG HFA INHALER INH SCH ×2 (07:51→18:44)
[2019-06-03] MEDS ORDERED: FLU VACC QS2019-20(6MOS UP)/PF 60 MCG/0.5 ML SYRINGE IM ONE (09:00)
[2019-06-03] MEDS ORDERED: Amlodipine 5 MG TAB PO SCH ×2 (09:00→13:00)
[2019-06-03] MEDS: FLUoxetine HCl 20 MG CAP PO SCH (09:25)
[2019-06-03] MEDS: HYDROcodone/Acetaminophen 10/325 mg Tablet PO PRN ×3 (09:26→23:49)
[2019-06-03] MEDS: Carvedilol 3.125 MG TAB PO SCH ×2 (09:26→20:28)
--- NOTE | 2019-06-03 12:59 | PDOC.HOSPP ---
- Subjective Encounter Date: 06/03/19 Encounter Time: 12:57 Subjective: 59 y/o male with HTN, DM, IBS, Bladder cancer and polysubstance abuse admitted due to abdominal pain associated with frequent blacks stools. Patient had an episode on seizure on admission. Admitted prior previous seizures. No further seizure or bloody stools. Reported unintentioal weight loss of about 60 pounds. - Objective Vital Signs & Weight: Vital Signs (12 hours) Temp Pulse Resp BP BP Pulse Ox 06/03/19 09:26 77 186/97 H 06/03/19 08:00 97.9 F 77 17 186/97 H 98 06/03/19 03:36 98 F 78 16 170/95 H 98 Weight Weight 186 lb 12.8 oz I&O: 06/02/19 06/03/19 06/04/19 06:59 06:59 06:59 Intake Total 1750 Balance 1750 Result Diagrams: 06/03/19 04:30 06/03/19 04:30 Additional Labs: Accuchecks 06/03/19 06/03/19 06/02/19 10:43 06:18 21:27 POC Glucose 117 H 108 99 06/02/19 16:57 POC Glucose 117 H Hospitalist ROS - Medication Medications: Active Medications Generic Name Dose Route Start Last Admin Trade Name Freq PRN Reason Stop Dose Admin Acetaminophen 650 mg 06/02/19 15:34 06/03/19 00:10 Tylenol PO 650 mg Q4H PRN Administration Headache/Fever/Mild Pain (1-3) Hydrocodone Bitart/Acetaminophen 1 tab 06/02/19 15:34 06/03/19 09:26 [place] 10/325 PO 1 tab QID PRN Administration mild pain Carvedilol 3.125 mg 06/02/19 21:00 06/03/19 09:26 Coreg PO 3.125 mg BID NICHOLE Administration Fluoxetine HCl 40 mg 06/03/19 09:00 06/03/19 09:25 Prozac PO 40 mg DAILY NICHOLE Administration Sodium Chloride 1,000 mls @ 80 mls/hr 06/02/19 15:34 06/03/19 06:22 Normal Saline 0.9% IV Not Given .[id number] NICHOLE Multivitamins 10 ml/ Folic 1,011.2 mls @ 70 mls/hr 06/02/19 20:00 06/02/19 21 :58 Acid 1 mg/ Thiamine HCl 100 mg IV 06/04/19 10:27 1,011.2 mls / Dextrose/Sodium Chloride Q24HR NICHOLE Administration Lorazepam 2 mg 06/02/19 16:01 06/03/19 09:31 Ativan PO 2 mg TID PRN Administration Anxiety Mometasone Furoate 2 puff 06/02/19 18:30 06/03/19 07:51 Asmanex Hfa 200 Mcg INH 2 puff BID-RT NICHOLE Administration - Exam General Appearance: awake alert Eye: anicteric sclera ENT: normocephalic atraumatic Neck: supple, no JVD Heart: RRR Respiratory: no wheezes, no rales, no ronchi, normal chest expansion Gastrointestinal: soft, non-tender, non-distended, normal bowel sounds Extremities: no cyanosis, no edema Neurological: cranial nerve grossly intact Psychiatric: normal affect, A&O x 3 Hosp A/P (1) GI bleeding Code(s): K92.2 - GASTROINTESTINAL HEMORRHAGE, UNSPECIFIED Status: Acute (2) IBS (irritable bowel syndrome) Status: Acute (3) Unintentional weight loss Code(s): R63.4 - ABNORMAL WEIGHT LOSS Status: Acute (4) Bladder cancer Status: Acute (5) Seizure Code(s): R56.9 - UNSPECIFIED CONVULSIONS Status: Acute (6) Chronic alcohol abuse Code(s): F10.10 - ALCOHOL ABUSE, UNCOMPLICATED Status: Acute (7) Chronic use of benzodiazepine for therapeutic purpose Code(s): Z79.899 - OTHER ALF (CURRENT) DRUG THERAPY Status: Acute (8) Hyponatremia Code(s): E87.1 - HYPO-OSMOLALITY AND HYPONATREMIA Status: Acute (9) Depression Code(s): F32.9 - MAJOR DEPRESSIVE DISORDER, SINGLE EPISODE, UNSPECIFIED Status : Chronic Qualifiers: Depression Type: unspecified Qualified Code(s): F32.9 - Major depressive disorder, single episode, unspecified (10) Diabetes mellitus Code(s): E11.9 - TYPE 2 DIABETES MELLITUS WITHOUT COMPLICATIONS Status: Chronic Qualifiers: Diabetes mellitus type: type 2 Diabetes mellitus nursing home insulin use: without nursing home use Diabetes mellitus complication status: without complication Qualified Code(s): E11.9 - Type 2 diabetes mellitus without complications (11) Hypertension Code(s): I10 - ESSENTIAL (PRIMARY) HYPERTENSION Status: Chronic Qualifiers: Hypertension type: essential hypertension Qualified Code(s): I10 - Essential (primary) hypertension (12) Cocaine abuse Code(s): F14.10 - COCAINE ABUSE, UNCOMPLICATED Status: Acute (13) Tobacco abuse disorder Code(s): Z72.0 - TOBACCO USE Status: Acute - Plan Continue PPI Monitor H/H and transfuse if indicated. Consult Neurology for seizure. Continue neurochecks and ativan as needed for alcohol withdrawal. Continue IVF and monitor serum sodium Get serum and urine osmolality as well as urine sodium. Diet as tolerated. GI following.
[2019-06-03] MEDS ORDERED: Lisinopril 20 MG TAB PO SCH (13:00)
[2019-06-03] MEDS ORDERED: Lisinopril 10 MG TAB PO SCH (13:00)
[2019-06-03 13:26] VITALS: BMI 27.6
[2019-06-03 15:36] LABS: Anion Gap 15 mmol/L (10-20); BUN (Urea Nitrogen) 7 mg/dL (8.4-25.7); Calc. Creatinine Clearance 80 mL/min (70-130); Calcium 9.1 mg/dL (7.8-10.44); Carbon Dioxide 18 mmol/L (22-29); Chloride 101 mmol/L (98-107); Estimated GFR-MDRD 77; Glucose 122 mg/dL (70-105); Potassium 5.2 mmol/L (3.5-5.1); Sodium 129 mmol/L (136-145)
--- NOTE | 2019-06-03 18:26 | PRG ---
DATE OF SERVICE: 06/03/2019 SUBJECTIVE: Mr. Cardona has a little bit of stomach pain and terrible headache. He is tolerating a full liquid diet. He would like to eat regular food. He has been afebrile. He has had bowel movements. OBJECTIVE: VITAL SIGNS: Temperature is 98, pulse 75, blood pressure 146/87. MEDICATION: He is now on Protonix 40 mg p.o. b.i.d. LABORATORY DATA: Hemoglobin is 14.6. Sodium 129, potassium 5.2, BUN and creatinine are 7 and 1.7. ASSESSMENT: The patient was admitted with reported melena. He was taking Pepto-Bismol. He is using cocaine. His hemoglobin is stable with no signs of overt bleeding. As per HPI, he has had upper endoscopies in the past. He had a normal lipase and liver function test and CT dissection protocol on the . RECOMMENDATIONS: At this time, I think we will just keep him on a PPI and we can advance his diet to regular. At this time, we will sign off from a GI standpoint. I see no role for endoscopy at this point. If there are any signs of acute hemorrhage, I will be happy to re-evaluate the patient. Please do not hesitate to call back. Job ID: [id number]
[2019-06-03] MEDS: Multivitamins, Adult 10 ML, Folic Acid 1 MG, Thiamine HCl 100 MG in Dextrose 5 %-0.45 %... IV SCH (20:28)
[2019-06-04 05:51] LABS: #Basophils 0.1 thou/uL (0.0-0.2); #Eosinphils 0.1 thou/uL (0.0-0.7); #Lymphocytes 1.8 thou/uL (1.20-3.40); #Monocytes 0.5 thou/uL (0.11-0.59); #Neutrophils 2.8 thou/uL (1.40-6.50); %Basophils 1.6 % (0.0-1.0); %Eosinophils 1.4 % (0.0-10.0); %Lymphocytes 34.1 % (21.0-51.0); %Monocytes 9.8 % (0.0-10.0); %Neutrophils 53.3 % (42.0-75.0); Hemoglobin 13.7 g/dL (14.0-18.0); Mean Corpuscular HGB CONC 32.9 g/dL (32.0-36.0); Mean Corpuscular Hemoglobin 30.1 pg (27.0-31.0); Mean Corpuscular Volume 91.4 fL (78.0-98.0); Mean Platelet Volume 8.2 fL (7.4-10.4); Platelet Count 237 thou/uL (130-400); RBC Distribution Width 12.6 % (11.5-14.5); Red Blood Cell (RBC) Count 4.57 mill/uL (4.70-6.10); White Blood Cell (WBC) Count 5.3 thou/uL (4.8-10.8)
[2019-06-04 06:12] LABS: Anion Gap 11 mmol/L (10-20); BUN (Urea Nitrogen) 7 mg/dL (8.4-25.7); Calc. Creatinine Clearance 95 mL/min (70-130); Calcium 8.8 mg/dL (7.8-10.44); Carbon Dioxide 23 mmol/L (22-29); Chloride 101 mmol/L (98-107); Estimated GFR-MDRD Greater than 90; Glucose 119 mg/dL (70-105); Potassium 3.8 mmol/L (3.5-5.1); Sodium 131 mmol/L (136-145)
[2019-06-04] MEDS: Mometasone 200 MCG HFA INHALER INH SCH (07:48)
[2019-06-04] MEDS ORDERED: Amlodipine 5 MG TAB PO SCH (09:00)
[2019-06-04] MEDS ORDERED: Amlodipine 10 MG TAB PO SCH (09:00)
[2019-06-04] MEDS ORDERED: Lisinopril 20 MG TAB PO SCH (09:00)
[2019-06-04] MEDS: FLUoxetine HCl 20 MG CAP PO SCH (09:53)
[2019-06-04] MEDS: Carvedilol 3.125 MG TAB PO SCH (09:54)
[2019-06-04] MEDS: HYDROcodone/Acetaminophen 10/325 mg Tablet PO PRN ×2 (09:57→14:24)
[2019-06-04] MEDS: Lorazepam 1 MG TAB PO PRN (10:01)
[2019-06-04 12:21] VITALS: BP 156/78; TEMP 98.7
--- NOTE | 2019-06-04 15:11 | DIS ---
DATE OF ADMISSION: 06/02/2019 DATE OF DISCHARGE: 06/04/2019 PRIMARY CARE PHYSICIAN: Bright Cast. DISCHARGE DIAGNOSES: 1. Acute GI bleeding due to suspected gastritis 2. Irritable bowel syndrome. 3. Unintentional weight loss. 4. History of bladder cancer. 5. Seizure disorder. 6. Chronic alcohol abuse. 7. Chronic benzodiazepine use. 8. Hyponatremia. 9. Depression. 10. Diabetes mellitus. 11. Hypertension. 12. Cocaine abuse. 13. Tobacco abuse. 14. Suspected Gastritis. present on admission CONSULTS: 1. Neurology. 2. Gastroenterology. HOSPITAL COURSE: A 59-year-old male patient with known history of hypertension, diabetes, IBS, prior history of bladder cancer, polysubstance abuse, admitted due to abdominal pain associated with frequent black stools. The patient was admitted and started on IV fluid for close monitoring. While on the floor, he had an episode of seizure, hence was transferred to the stroke unit. He had no further seizure disorder. He reported prior history of seizures and this was felt to be related to benzodiazepine withdrawal as well as possible alcohol withdrawal. Alcohol withdrawal protocol was commenced. The patient also was found to have hyponatremia with serum sodium of 129. He was treated with IV fluid and Ativan as per alcohol withdrawal protocol with improvement. GI consult was obtained and given that there is no further black stool and hemoglobin is stable, no further recommendation or evaluation was recommended. However, the patient was asked to continue on PPI therapy. He remained stable and hemodynamically stable and was subsequently discharged home. Of note, hyponatremia was evaluated further with urine and sodium osmolality and this was consistent with SIADH. The patient was asked to start fluid restriction. Note that on presentation, hemoglobin was 16.4, at discharge, it was 13.7. The patient's urine drug screen was positive for benzodiazepine, cocaine , and cannabinoids. PHYSICAL EXAMINATION: VITAL SIGNS: Temperature 98.7, pulse 65, respiratory rate 14, SpO2 of 95% on room air, blood pressure 156/78. GENERAL: Comfortable male, in no distress. Afebrile. Anicteric. Acyanotic. HEENT: Normocephalic, atraumatic. Oral mucosa is moist. CARDIOVASCULAR: Regular rhythm and rate with normal heart sounds 1 and 2. RESPIRATORY: Good air entry bilaterally with no obvious crackle or rhonchi or use of accessory muscles. GI: Full, soft, nontender, nondistended with normal bowel sounds. EXTREMITIES: Grossly normal looking atraumatic with no edema or erythema. ACCOUNTS PAYABLE LEAD: Conscious, alert, oriented x3 with appropriate mental status. Cranial nerves 2 through 12 are grossly intact. The patient moves all extremities. DISCHARGE CONDITION: Improved. DISCHARGE DISPOSITION: Home. DISCHARGE INSTRUCTIONS: The patient was instructed not to drive. FOLLOWUP: 1. To follow up with neurologist. 2. Also with energy conservation technician for further evaluation of unintentional weight loss. DISCHARGE MEDICATIONS: 1. Albuterol HFA q.6 p.r.n. 2. Tizanidine 4 mg q.8 p.r.n. 3. Dicyclomine 20 mg p.o. t.i.d. 4. Prozac 40 mg p.o. daily. 5. Fluticasone/salmeterol (Advair) 1 inhalation b.i.d. 6. Hydrocodone/acetaminophen 1 tablet q.i.d. 7. Combivent 2 puffs inhalation q.i.d. p.r.n. 8. Lisinopril 20 mg p.o. daily. 9. Lorazepam 2 mg p.o. t.i.d. 10. Oxcarbazepine 150 mg p.o. t.i.d. 11. Potassium chloride 10 mEq p.o. daily. 12. Lyrica 100 mg p.o. b.i.d. 13. Januvia 100 mg p.o. daily. 14. Testosterone Cypionate 200 mg intramuscularly every 14 days. 15. Amlodipine 10 mg p.o. daily. 16. Carvedilol 3.125 mg p.o. b.i.d. 17. Esomeprazole 40 mg p.o. b.i.d. The patient is to follow up with PCP in 1 week. This discharge took more than 36 minutes. Job ID: [id number] [facility]
--- NOTE | 2019-06-06 05:54 | PQF ---
RAYMON WILSON OBI, CHIZOBA C [id number] [facility] [id number] CLINICAL DOCUMENTATION CLARIFICATION FORM: POST DISCHARGE Addendum to original discharge summary date: ____ Late entry note date: __ DATE: 06/06/19 ATTN: Dr Del Shirley Please exercise your independent, professional judgment in responding to the clarification form. Clinical indicators are provided on the bottom of this form for your review In your clinical opinion based on clinical findings below, can you please identify the etiology of Melena if due to: Please check appropriate box(s): [ ] Cocaine Abuse [ ] Gastritis [ ] IBS [ x ] Other condition, please specify:____Suspected gastritis [ ] Unable to determine In addition, please specify: Present on Admission (POA): [ x ] Yes [ ] No [ ] Unable to determine For continuity of documentation, please document condition throughout progress notes and discharge summary. Thank You. CLINICAL INDICATORS - SIGNS / SYMPTOMS / LABS H&P p1 06/02 Dr Monzon The patient gives history of having upper abd pain in both quadrant from last 4 days H&P p1 06/02 Dr Monzon He also mentions that he has had watery black stools vinita 8 episodes from morning H&P p1 06/02 Dr Monzon Patient has had upper endoscopy sin Mar 2017, where he was found to have erosive esophagitis. Nonerosive duodenitis and gastritis then by Dr Miles Consult 06/02 He was found to be hemoccult-positive Consult p2 06/02 I suspect that his abd pain is probably related to chronic cocaine use RISK FACTORS H&P p1 06/02 History of irritable bowel syndrome Consult p2 06/02 Cocaine drug abuse Consult p2 06/02 Reported Melena TREATMENTS: OCT 06 Protonix Drip OCT 06 Normal Saline 80ml per hour GI Consult 06/02 Aaron Ramos (This form is maintained as a part of the permanent medical record) 2014 [employer], [employer]. All Rights Reserved [email or web address] [not provided] MTDD
== END 2019-06-04 15:32 | disposition home or self-care (01) | DRG 378 ==
LOC: ERS 12:25 → T4-B 16:49 → 2SE 17:43
PROVIDERS: ADMIT Internal Medicine; ATTEND Internal Medicine
DX: K29.71 Gastritis, unspecified, with bleeding (principal); E22.2 Syndrome of inappropriate secretion of antidiuretic hormone; K58.9 Irritable bowel syndrome, unspecified; G40.909 Epilepsy, unspecified, not intractable, without status epilepticus; F14.10 Cocaine abuse, uncomplicated; F17.200 Nicotine dependence, unspecified, uncomplicated; Z86.010 Personal history of colon polyps; F32.9 Major depressive disorder, single episode, unspecified; R63.4 Abnormal weight loss; I10 Essential (primary) hypertension; F41.9 Anxiety disorder, unspecified; G89.4 Chronic pain syndrome; G40.409 Other generalized epilepsy and epileptic syndromes, not intractable, without status epilepticus; J44.9 Chronic obstructive pulmonary disease, unspecified; T42.4X6A Underdosing of benzodiazepines, initial encounter; Z68.28 Body mass index [BMI] 28.0-28.9, adult; Z23 Encounter for immunization; Z90.49 Acquired absence of other specified parts of digestive tract; Z88.2 Allergy status to sulfonamides; Z79.899 Other long term (current) drug therapy; Z79.84 Long term (current) use of oral hypoglycemic drugs; Z85.51 Personal history of malignant neoplasm of bladder; Z88.6 Allergy status to analgesic agent; Z88.1 Allergy status to other antibiotic agents
CPT/HCPCS: 36415; 36416; 70450; 80048; 80306; 80307; 83605; 83735; 83930; 83935; 84300; 85014; 85018; 85025; 90471; 90686; 99285; C9113; G0008; J3411; J3490; J7042

== ENCOUNTER 2020-01-13 17:51 | Inpatient (IN) | payer MEDICARE ==
[2020-01-13 19:14] LABS: Benzodiazepine Screen Detected (NotDetected); Cocaine Metabolite Screen Detected (NotDetected); Medtox Reader # READER 4; Methamphetamine Not Detected (NotDetected); Phencyclidine (PCP) Not Detected (NotDetected); THC/Cannabinoid Screen Detected (NotDetected)
[2020-01-13 19:15] LABS: Amphetamine Not Detected (NotDetected); Barbiturates Screen Not Detected (NotDetected); Medtox Control Line Valid? VALID (VALID); Methadone Not Detected (NotDetected); Opiate Screen Not Detected (NotDetected); Oxycodone Screen Not Detected (NotDetected); Tricyclic Screen Not Detected (NotDetected)
[2020-01-13 19:25] LABS: #Lymphocytes 1.7 thou/uL (1.20-3.40); #Monocytes 0.5 thou/uL (0.11-0.59); %Basophils 0.9 % (0.0-1.0); %Eosinophils 0.6 % (0.0-10.0); %Lymphocytes 32.4 % (21.0-51.0); %Monocytes 9.9 % (0.0-10.0); %Neutrophils 56.3 % (42.0-75.0); Hemoglobin 14.4 g/dL (14.0-18.0); Mean Corpuscular HGB CONC 35.4 g/dL (32.0-36.0); Mean Corpuscular Hemoglobin 31.4 pg (27.0-31.0); Mean Corpuscular Volume 88.9 fL (78.0-98.0); Mean Platelet Volume 7.1 fL (7.4-10.4); Platelet Count 273 thou/uL (130-400); RBC Distribution Width 12.8 % (11.5-14.5); Red Blood Cell (RBC) Count 4.57 mill/uL (4.70-6.10); White Blood Cell (WBC) Count 5.4 thou/uL (4.8-10.8)
[2020-01-13 19:44] LABS: ALT (SGPT) 13 U/L (8-55); AST (SGOT) 17 U/L (5-34); Albumin 4.4 g/dL (3.5-5.0); Alkaline Phosphatase 102 U/L (40-110); Anion Gap 15 mmol/L (10-20); BUN (Urea Nitrogen) 6 mg/dL (8.4-25.7); Bilirubin, Total 0.3 mg/dL (0.2-1.2); Calc. Creatinine Clearance 0 mL/min (70-130); Calcium 9.6 mg/dL (7.8-10.44); Carbon Dioxide 21 mmol/L (22-29); Chloride 93 mmol/L (98-107); Estimated GFR-MDRD 84; Globulin 3.2 g/dL (2.4-3.5); Glucose 105 mg/dL (70-105); Lipase 36 U/L (8-78); Magnesium 1.8 mg/dL (1.6-2.6); Potassium 3.8 mmol/L (3.5-5.1); Protein, Total 7.6 g/dL (6.0-8.3); Sodium 125 mmol/L (136-145)
[2020-01-13] MEDS ORDERED: levETIRAcetam 1000 MG/100 ML PREMIX BAG ONE (20:28)
[2020-01-13] MEDS ORDERED: Lorazepam 2 MG/ML VIAL ONE (20:35)
--- NOTE | 2020-01-13 20:40 | PDOC.HHP ---
Hospitalist HPI - History of Present Illness Seizure History of Present Illness: Patient with PMH of IBS, HTN, anxiety, polysubstance abuse including alcohol ( beer), marijuana, cocaine and seizure disorder presents to ED for evaluation of seizure. Per patient he has long standing history of seizures. This time he does not recall full sequence of events but believes he had 2 episodes one of which was witnessed by family. He attributes his seizure to being out of this medications. He is chronically on 2mg ativan TID for treatment of his anxiety and IBS which he has not taken for about 3 days. Also admits to chronic & frequent use of marijuana, cocaine & alcohol. Tells me last use of the three was about 2 days ago. Presently his only complaint is feeling tired, having some generalized body ache and epigastric pain which is not uncommon due to his IBS. Denies any focal deficits or headache. Denies any recent illness. No fever, chills, malaise. Does admit to mild cough and slight sputum. No sick contacts. Initial ED evaluation reveals hyponatremia of 125 which is somewhat of a chronic /recurrent finding, 275 serum osm, urine toxicology positive for marijuana, cocaine and benzos. VS at time of my evaluation are stable. Hospitalist ROS - Review of Systems Constitutional: reports: malaise. denies: fever, chills, sweats, weakness Eyes: denies: pain, conjunctivae inflammation ENT: denies: ear pain, ear discharge, mouth swelling, throat pain Respiratory: reports: cough, sputum. denies: shortness of breath, SOB with excertion Cardiovascular: denies: chest pain, palpitations, orthopnea Gastrointestinal: reports: abdominal pain. denies: nausea, vomiting, diarrhea, melena, hematochezia Genitourinary: denies: dysuria, frequency, incontinence Musculoskeletal: reports: other (refers generalized body ache/soreness) Neurological: reports: seizures. denies: numbness, incoordination, change in speech, confusion - Exam General Appearance: NAD, awake alert Eye: PERRL, anicteric sclera ENT: normocephalic atraumatic Neck: supple, no JVD Heart: RRR, no murmur, no gallops Respiratory: CTAB, no wheezes, no rales Gastrointestinal: soft, non-tender, non-distended, normal bowel sounds Extremities: no cyanosis, no clubbing Skin: normal turgor Neurological: cranial nerve grossly intact, normal sensation to touch, no weakness Musculoskeletal: normal tone, normal strength Psychiatric: normal affect, normal behavior, A&O x 3 Hospitalist Results - Labs Result Diagrams: 01/13/20 19:16 01/13/20 19:16 Lab results: WBC 5.4 thou/uL (4.8-10.8) 01/13/20 19:16 Hgb 14.4 g/dL (14.0-18.0) 01/13/20 19:16 Hct 40.6 % (42.0-52.0) L 01/13/20 19:16 MCV 88.9 fL (78.0-98.0) 01/13/20 19:16 Plt Count 273 thou/uL (130-400) 01/13/20 19:16 Neutrophils % 56.3 % (42.0-75.0) 01/13/20 19:16 Sodium 125 mmol/L (136-145) L 01/13/20 19:16 Potassium 3.8 mmol/L (3.5-5.1) 01/13/20 19:16 Chloride 93 mmol/L (98-107) L 01/13/20 19:16 Carbon Dioxide 21 mmol/L (22-29) L 01/13/20 19:16 BUN 6 mg/dL (8.4-25.7) L 01/13/20 19:16 Creatinine 1.09 mg/dL (0.7-1.3) 01/13/20 19:16 Glucose 105 mg/dL (70-105) 01/13/20 19:16 Calcium 9.6 mg/dL (7.8-10.44) 01/13/20 19:16 Total Bilirubin 0.3 mg/dL (0.2-1.2) 01/13/20 19:16 AST 17 U/L (5-34) 01/13/20 19:16 ALT 13 U/L (8-55) 01/13/20 19:16 Alkaline Phosphatase 102 U/L (40-110) 01/13/20 19:16 Serum Total Protein 7.6 g/dL (6.0-8.3) 01/13/20 19:16 Albumin 4.4 g/dL (3.5-5.0) 01/13/20 19:16 Lipase 36 U/L (8-78) 01/13/20 19:16 Hospitalist H&P A/P - Plan Plan: Problem List 1. Seizure disorder 2. Anxiety with benzo dependence 3. Polysubstance abuse 4. Chronic hyponatremia 5. History of hypertension 6. History of diabetes 7. History of IBS Assessment and Plan 1. Seizure disorder - admit for observation - current seizure likely precipitated by missing doses of long standing benzos - exacerbating factors include his polysubstance abuse - on exam there is obvious evidence of alcohol/benzo withdrawal - continue with seizure/fall precautions - restart patient on home dose PO ativan + IV ativan PRN - IV Kepra for now; hold oxcarbazepine - awaiting med reconciliation - pending progression consider neurology consult 2. Anxiety with benzo dependence - restart home ativan & antidepressants - recommended to wean off benzos by PCP - patient to discuss with PCP - awaiting med reconciliation 3. Polysubstance abuse - extensively counseled regarding life style modifications - appreciative of advice but unlikely to follow through - awaiting med reconciliation for antianxiety/antidepressants - monitor for evidence of withdrawal 4. Chronic hyponatremia - likely some degree of beer potomania - trial if IVF NS overnight 5. History of hypertension - restart home medications 6. History of diabetes - continue with home medications 7. History of IBS - per patient follow with MD in [place] - he believes he is given ativan for this condition - advised to discuss alternative medications DVT PPX: Lovenox FULL CODE
[2020-01-13] MEDS ORDERED: Lidocaine Viscous Sol 2% 15 ml UD Cup ONE (21:31)
[2020-01-13] MEDS ORDERED: Mag-Al 1200 mg/1200 mg/30 ML UDCUP ONE (21:31)
[2020-01-13] MEDS ORDERED: tiZANidine HCl 4 MG TAB PO PRN (22:10)
[2020-01-13] MEDS ORDERED: Albuterol 200 PUFF (6.7GM INHALER) INH PRN (22:10)
[2020-01-14] MEDS: Sodium Chloride 0.9% 1,000 ML IV SCH ×4 (00:05→21:12)
[2020-01-14] MEDS ORDERED: Lorazepam 2 MG/ML VIAL SLOW IVP PRN (03:43)
[2020-01-14] MEDS ORDERED: Guaifenesin DM 100-10/5 ML UDCUP PO PRN (03:43)
[2020-01-14] MEDS ORDERED: Acetaminophen 325 MG TAB PO PRN (03:43)
[2020-01-14] MEDS ORDERED: Ondansetron PF 4 MG/2 ML Vial IVP PRN (03:43)
[2020-01-14] MEDS ORDERED: Acetaminophen 325 MG TAB ONE (04:03)
[2020-01-14] MEDS ORDERED: Carvedilol 3.125 MG TAB PO SCH (09:00)
[2020-01-14] MEDS ORDERED: OXcarbazepine 150 MG TAB PO SCH (09:00)
[2020-01-14 09:44] LABS: Anion Gap 17 mmol/L (10-20); BUN (Urea Nitrogen) 5 mg/dL (8.4-25.7); Calc. Creatinine Clearance 0 mL/min (70-130); Calcium 9.4 mg/dL (7.8-10.44); Carbon Dioxide 18 mmol/L (22-29); Chloride 99 mmol/L (98-107); Estimated GFR-MDRD 89; Glucose 103 mg/dL (70-105); Phosphorus 2.9 mg/dL (2.3-4.7); Potassium 3.9 mmol/L (3.5-5.1); Sodium 130 mmol/L (136-145)
[2020-01-14] MEDS ORDERED: levETIRAcetam 500 MG/100 ML PREMIX BAG ONE ×2 (10:24→10:25)
[2020-01-14] MEDS ORDERED: Lorazepam 1 MG TAB ONE (10:24)
[2020-01-14] MEDS ORDERED: HYDROcodone/Acetaminophen 10/325 mg Tablet ONE (10:24)
[2020-01-14] MEDS: FLUoxetine HCl 20 MG CAP PO SCH (10:35)
[2020-01-14] MEDS: Amlodipine 10 MG TAB PO SCH (10:35)
[2020-01-14] MEDS: Alogliptin 25 MG TAB PO SCH (10:35)
[2020-01-14] MEDS: HYDROcodone/Acetaminophen 10/325 mg Tablet PO SCH ×4 (10:36→21:11)
[2020-01-14] MEDS: Lorazepam 1 MG TAB PO SCH ×3 (10:37→21:11)
[2020-01-14] MEDS: Lisinopril 20 MG TAB PO SCH (10:37)
--- NOTE | 2020-01-14 11:45 | CON ---
NEUROLOGY CONSULTATION DATE OF CONSULTATION: 01/14/2020 REASON FOR CONSULTATION: Seizure. HISTORY OF PRESENT ILLNESS: Mr. Mehdi Cardona is a 59-year-old male with medical history significant for irritable bowel syndrome, hypertension, anxiety, polysubstance abuse, alcohol abuse, marijuana, cocaine abuse and seizure disorder, presented with a breakthrough seizure. Per patient, he had 2 seizures prior to this episode, which were witnessed by his family. He has been taking Ativan 2 mg t.i.d. for treatment of his anxiety and has not taken the medication for 3 days. He attributes seizure because of withdrawal symptoms. The patient denies any focal numbness, weakness, nausea, vomiting, headache, chest pain, or abdominal pain associated with the seizures. In the emergency room, he was found to have hyponatremia 125, but he does have history of chronic alcohol abuse and urine tox screen was positive for marijuana, cocaine, and benzodiazepines. ALLERGIES: Sulfa drugs, ketorolac, sufamethoxazole - Review of Systems Constitutional: reports: malaise. denies: fever, chills, sweats, weakness Eyes: denies: pain, conjunctivae inflammation ENT: denies: ear pain, ear discharge, mouth swelling, throat pain Respiratory: reports: cough, sputum. denies: shortness of breath, SOB with excertion Cardiovascular: denies: chest pain, palpitations, orthopnea Gastrointestinal: reports: abdominal pain. denies: nausea, vomiting, diarrhea, melena, hematochezia Genitourinary: denies: dysuria, frequency, incontinence Musculoskeletal: reports: generalized body ache/soreness) Neurological: reports: seizures. denies: numbness, incoordination, change in speech, confusion PAST MEDICAL HISTORY: Hypertension, irritable bowel syndrome, irritability, polysubstance abuse, seizure disorder. PAST SURGICAL HISTORY: None. FAMILY HISTORY: No family history of epilepsy or stroke. SOCIAL HISTORY: The patient has history of alcohol and illegal drug abuse. Physical Exam VITAL SIGNS: Blood pressure 130/80, pulse 80, respiratory rate 18. General Appearance: NAD, awake alert Eye: PERRL, anicteric sclera ENT: normocephalic atraumatic Neck: supple, no JVD Heart: RRR, no murmur, no gallops Respiratory: CTAB, no wheezes, no rales Gastrointestinal: soft, non-tender, non-distended, normal bowel sounds Extremities: no cyanosis, no clubbing Skin: normal turgor Neurological: Mental status: The patient is alert and oriented to person, place, and time. Muscle tone and bulk are normal. Strength 5/5 bilaterally. Cranial nerves 2 through 12 intact. Cerebellar, finger-nose testing intact. Sensory intact to all sensory modalities. Reflexes are symmetric bilaterally. Gait deferred due to the patient's safety reasons. Recent and remote memory intact. Speech is clear. Fund of knowledge is appropriate. 01/13/20 19:16 Lab results: WBC 5.4 thou/uL (4.8-10.8) 01/13/20 19:16 Hgb 14.4 g/dL (14.0-18.0) 01/13/20 19:16 Hct 40.6 % (42.0-52.0) L 01/13/20 19:16 MCV 88.9 fL (78.0-98.0) 01/13/20 19:16 Plt Count 273 thou/uL (130-400) 01/13/20 19:16 Neutrophils % 56.3 % (42.0-75.0) 01/13/20 19:16 Sodium 125 mmol/L (136-145) L 01/13/20 19:16 Potassium 3.8 mmol/L (3.5-5.1) 01/13/20 19:16 Chloride 93 mmol/L (98-107) L 01/13/20 19:16 Carbon Dioxide 21 mmol/L (22-29) L 01/13/20 19:16 BUN 6 mg/dL (8.4-25.7) L 01/13/20 19:16 Creatinine 1.09 mg/dL (0.7-1.3) 01/13/20 19:16 Glucose 105 mg/dL (70-105) 01/13/20 19:16 Calcium 9.6 mg/dL (7.8-10.44) 01/13/20 19:16 Total Bilirubin 0.3 mg/dL (0.2-1.2) 01/13/20 19:16 AST 17 U/L (5-34) 01/13/20 19:16 ALT 13 U/L (8-55) 01/13/20 19:16 Alkaline Phosphatase 102 U/L (40-110) 01/13/20 19:16 Serum Total Protein 7.6 g/dL (6.0-8.3) 01/13/20 19:16 Albumin 4.4 g/dL (3.5-5.0) 01/13/20 19:16 Lipase 36 U/L (8-78) 01/13/20 19:16 DATA REVIEWED: I reviewed the labs, which is significant for hyponatremia at 125. Otherwise, the labs were essentially unremarkable. ASSESSMENT AND PLAN: Mr. Mehdi Cardona is consulted for seizure disorder. He does have history of chronic seizure disorder and he is on Ativan, and also takes oxcarbazepine, which can cause hyponatremia. He was loaded with IV Keppra in the emergency room. Consider discontinuing oxcarbazepine and continue Keppra 500 mg twice daily. Continue Lyrica 100 mg twice daily. Recommend EEG and MRI of the brain with seizure protocol. Continue home medications. The patient has been counseled about benzodiazepine withdrawal, which can cause fatal seizures and the effect of benzodiazepine with history of alcohol abuse. Consider an outpatient PCP appointment to wean him off from benzodiazepines. The patient was counseled about polysubstance abuse. Observe seizure precautions. Continue medical management per primary team. We will continue to follow. Thank you for the consult. Job ID: [id number] [facility]
[2020-01-14 12:32] VITALS: BMI 27.7
[2020-01-14] MEDS: Enoxaparin Sodium 40 MG/0.4 ML SYRINGE SC SCH (12:56)
[2020-01-14] MEDS: Pregabalin 50 MG CAP PO SCH ×2 (12:56→21:11)
[2020-01-14] MEDS ORDERED: Magnevist 469MG/ML 20 ML VIAL ONE (13:08)
[2020-01-14] MEDS: Mometasone 200 MCG/Formoterol 5 MCG 120 PUFF INHALER INH SCH ×2 (14:12→19:20)
[2020-01-14] MEDS ORDERED: cloNIDine 0.1 MG TAB PO PRN (14:36)
--- NOTE | 2020-01-14 14:38 | PDOC.HOSPP ---
- Subjective Encounter Date: 01/14/20 Encounter Time: 13:00 Subjective: Patient seen and examined for Seizure. No new seizure or focal deficits. No new complaints. No overnight events - Objective Vital Signs & Weight: Vital Signs (12 hours) Temp Pulse Resp BP BP Pulse Ox 01/14/20 11:40 100 01/14/20 11:38 99.3 F 77 20 158/78 H 100 01/14/20 10:37 180/100 H 01/14/20 10:35 73 188/100 H Weight Weight 188 lb Result Diagrams: 01/13/20 19:16 01/14/20 08:58 Additional Labs: Laboratory Tests 01/13/20 01/13/20 01/13/20 18:00 19:16 19:16 Sodium 125 L TSH 3rd Generation 0.5230 U Benzodiazepines Scrn Detected H U Cocaine Metab Screen Detected H U Cannabinoids Screen Detected H EKG Reviewed by me: Yes (Tele SR) Hospitalist ROS - Review of Systems Cardiovascular: denies: chest pain, palpitations, orthopnea, paroxysmal noc. dyspnea, edema, light headedness, other Gastrointestinal: denies: nausea, vomiting, abdominal pain, diarrhea, constipation, melena, hematochezia, other - Medication Medications: Active Medications Generic Name Dose Route Start Last Admin Trade Name Freq PRN Reason Stop Dose Admin Acetaminophen 650 mg 01/14/20 03:43 01/14/20 04:03 Tylenol PO 650 mg Q4H PRN Administration Headache/Fever/Mild Pain (1-3) Hydrocodone Bitart/Acetaminophen 1 tab 01/14/20 09:00 01/14/20 10:36 [place] 10/325 PO 1 tab QID NICHOLE Administration Alogliptin Benzoate 25 mg 01/14/20 09:00 01/14/20 10:35 Alogliptin PO 25 mg DAILY NICHOLE Administration Amlodipine Besylate 10 mg 01/14/20 09:00 01/14/20 10:35 Norvasc PO 10 mg DAILY NICHOLE Administration Enoxaparin Sodium 40 mg 01/14/20 09:00 01/14/20 12:56 Lovenox SC 40 mg 0900 NICHOLE Administration Fluoxetine HCl 40 mg 01/14/20 09:00 01/14/20 10:35 Prozac PO 40 mg DAILY NICHOLE Administration Levetiracetam 500 mg/ Device 100 mls @ 200 mls/hr 06/18/20 09:00 01/14/20 10: 37 IVPB 100 mls BID NICHOLE Administration Sodium Chloride 1,000 mls @ 100 mls/hr 01/14/20 04:00 01/14/20 04:01 Normal Saline 0.9% IV 01/15/20 03:46 1,000 mls .Q10H NICHOLE Administration Lisinopril 20 mg 01/14/20 09:00 01/14/20 10:37 Zestril PO 20 mg DAILY NICHOLE Administration Lorazepam 2 mg 01/14/20 09:00 01/14/20 10:37 Ativan PO 2 mg TID NICHOLE Administration Mometasone Furoate/Formoterol Fumar 2 puff 01/14/20 06:30 01/14/20 14:12 Dulera 200 Mcg/5 Mcg Inhaler INH Not Given BID-RT NICHOLE Pantoprazole Sodium 40 mg 01/14/20 09:00 01/14/20 10:37 Protonix PO 40 mg BID NICHOLE Administration Pregabalin 100 mg 01/14/20 09:00 01/14/20 12:56 Lyrica PO 100 mg BID NICHOLE Administration - Exam General Appearance: NAD Neck: supple, no JVD Heart: RRR, no gallops, no rubs, normal peripheral pulses Respiratory: no wheezes, no rales, normal chest expansion, rhonchi Gastrointestinal: soft, non-tender, non-distended, normal bowel sounds Extremities: no cyanosis, no clubbing, no edema Neurological: cranial nerve grossly intact, normal sensation to touch, no weakness, no new deficit Psychiatric: normal affect, A&O x 3 Hosp A/P - Plan DVT proph w/lovenox, DVT proph w/SCDs Breakthrough seizure Toxic Metabolic Encephalopathy - POA Seizure disorder with med noncompliance Acute on chronic hyponatremia Polysubstance abuse Anxiety HTN DM2 IBS PLAN: Cont Keppra MRI brain per Neuro recs EEG DC IVF AM labs Code status changed to Chem code per patient req Cont sliding scale Cont other meds as above
[2020-01-14] MEDS ORDERED: Dextrose 50% Abboject 50 ML SYRINGE SLOW IVP PRN (14:44)
[2020-01-14] MEDS ORDERED: Insulin Regular 300 UNITS/3 ML VIAL SC PRN ×2 (14:44)
[2020-01-14] MEDS ORDERED: Dextrose 5% in Water 1,000 ML IV PRN (14:44)
--- NOTE | 2020-01-14 16:40 | MRI ---
Exam: Brain MRI with and without contrast HISTORY: Seizure COMPARISON: None FINDINGS: Gradient echo sequence: No hemorrhage Calvarium: Appropriate T1 marrow signal intensity Midline brain parenchyma: Unremarkable Cerebrum:No parenchymal hemorrhage No extra-axial hematoma No midline shift Basilar cisterns are patent Brain volume, age-appropriate Cortical villasenor-white matter differentiation is preserved. No hydrocephalus Symmetric signal intensity of the hippocampi. No evidence of mesial temporal sclerosis. Ventricles: No evidence of hydrocephalus. Sinuses and mastoid air cells: Adequate aeration Diffusion: Central arterial flow is maintained. Absent restricted diffusion. Postcontrast images: No pathologic enhancement of the brain parenchyma. IMPRESSION: 1. Absent restricted diffusion. No acute infarct. 2. No pathologic enhancement of the brain parenchyma 3. No MR evidence of mesial temporal sclerosis
--- NOTE | 2020-01-14 16:57 | EEG ---
DATE OF SERVICE: 01/14/2020 This EEG was performed using 24-channel [employer] video digital EEG machine with 24-disk electrode. This was an extended 3 hours 10 minutes of inpatient video EEG recording. Digital analysis of the EEG was done for spike and seizure detection, which revealed no abnormalities. BACKGROUND: The posterior background rhythm was not observed. Low-amplitude EEG with excessive beta activity intermixed with the background. HYPERVENTILATION: No significant response seen with hyperventilation. PHOTIC STIMULATION: No significant response seen with photic stimulation. SLEEP: No stage change was observed. EEG DIAGNOSIS: Absence of posterior background rhythm. CLINICAL INTERPRETATION: This EEG is consistent with mild generalized nonspecific cerebral dysfunction. No ictal or interictal epileptiform abnormalities seen during the recording. Job ID: [id number]
[2020-01-15 04:46] LABS: #Basophils 0.1 thou/uL (0.0-0.2); #Eosinphils 0.1 thou/uL (0.0-0.7); #Lymphocytes 2.5 thou/uL (1.20-3.40); #Monocytes 0.7 thou/uL (0.11-0.59); #Neutrophils 3.2 thou/uL (1.40-6.50); %Basophils 1.4 % (0.0-1.0); %Eosinophils 0.9 % (0.0-10.0); %Lymphocytes 38.6 % (21.0-51.0); %Monocytes 11.2 % (0.0-10.0); Hemoglobin 12.7 g/dL (14.0-18.0); Mean Corpuscular HGB CONC 33.4 g/dL (32.0-36.0); Mean Corpuscular Volume 89.7 fL (78.0-98.0); Mean Platelet Volume 7.1 fL (7.4-10.4); Platelet Count 260 thou/uL (130-400); RBC Distribution Width 12.9 % (11.5-14.5); Red Blood Cell (RBC) Count 4.23 mill/uL (4.70-6.10); White Blood Cell (WBC) Count 6.6 thou/uL (4.8-10.8)
[2020-01-15 05:04] LABS: Anion Gap 12 mmol/L (10-20); BUN (Urea Nitrogen) 8 mg/dL (8.4-25.7); Calc. Creatinine Clearance 86 mL/min (70-130); Calcium 8.6 mg/dL (7.8-10.44); Carbon Dioxide 24 mmol/L (22-29); Chloride 99 mmol/L (98-107); Estimated GFR-MDRD 83; Glucose 112 mg/dL (70-105); Potassium 3.5 mmol/L (3.5-5.1); Sodium 131 mmol/L (136-145)
[2020-01-15] MEDS: Mometasone 200 MCG/Formoterol 5 MCG 120 PUFF INHALER INH SCH ×2 (06:50→19:16)
[2020-01-15] MEDS: Amlodipine 10 MG TAB PO SCH (08:28)
[2020-01-15] MEDS: Pregabalin 50 MG CAP PO SCH (08:28)
[2020-01-15] MEDS: FLUoxetine HCl 20 MG CAP PO SCH (08:28)
[2020-01-15] MEDS: HYDROcodone/Acetaminophen 10/325 mg Tablet PO SCH ×3 (08:29→18:18)
[2020-01-15] MEDS: Enoxaparin Sodium 40 MG/0.4 ML SYRINGE SC SCH (08:29)
[2020-01-15] MEDS: Lorazepam 1 MG TAB PO SCH ×2 (08:30→15:21)
[2020-01-15] MEDS: Lisinopril 20 MG TAB PO SCH (08:30)
[2020-01-15] MEDS ORDERED: Polyethylene Glycol 3350 17 GM Packet PO SCH (10:15)
[2020-01-15] MEDS: Alogliptin 25 MG TAB PO SCH (10:50)
--- NOTE | 2020-01-15 11:17 | PDOC.HOSPP ---
- Subjective Encounter Date: 01/15/20 Subjective: NEUROLOGY PROGRESS NOTE No acute events overnight. No seizures since admission. He is tolerating keppra well. - Objective Vital Signs & Weight: Vital Signs (12 hours) Temp Pulse Resp BP BP Pulse Ox 01/15/20 07:15 99 01/15/20 07:14 98.4 F 77 18 161/90 H 99 01/15/20 03:40 98 F 76 13 115/61 93 L 01/14/20 23:42 97.7 F 65 12 158/77 H 94 L Weight Weight 188 lb I&O: 01/14/20 01/15/20 01/16/20 06:59 06:59 06:59 Intake Total 800 Output Total 400 Balance 800 -400 Result Diagrams: 01/15/20 04:30 01/15/20 04:30 Additional Labs: Accuchecks 01/15/20 01/15/20 01/14/20 11:00 06:10 20:36 POC Glucose 122 H 122 H 108 01/14/20 17:09 POC Glucose 103 Radiology Reviewed by me: Yes EKG Reviewed by me: Yes Hospitalist ROS - Review of Systems Constitutional: denies: fever, chills, sweats, weakness, malaise, other Eyes: denies: pain, vision change, conjunctivae inflammation, eyelid inflammation, redness, other ENT: denies: ear pain, ear discharge, nose pain, nose discharge, nose congestion , mouth pain, mouth swelling, throat pain, throat swelling, other Respiratory: denies: cough, dry, shortness of breath, hemoptysis, SOB with excertion, pleuritic pain, sputum, wheezing, other Cardiovascular: denies: chest pain, palpitations, orthopnea, paroxysmal noc. dyspnea, edema, light headedness, other Gastrointestinal: denies: nausea, vomiting, abdominal pain, diarrhea, constipation, melena, hematochezia, other Genitourinary: denies: dysuria, frequency, incontinence, hematuria, retention, other Musculoskeletal: denies: neck pain, shoulder pain, arm pain, back pain, hand pain, leg pain, foot pain, other Skin: denies: rash, lesions, matheus, bruising, other Neurological: reports: confusion, seizures - Medication Medications: Active Medications Generic Name Dose Route Start Last Admin Trade Name Freq PRN Reason Stop Dose Admin Acetaminophen 650 mg 01/14/20 03:43 01/14/20 04:03 Tylenol PO 650 mg Q4H PRN Administration Headache/Fever/Mild Pain (1-3) Hydrocodone Bitart/Acetaminophen 1 tab 01/14/20 09:00 01/15/20 08:29 [place] 10/325 PO 1 tab QID NICHOLE Administration Alogliptin Benzoate 25 mg 01/14/20 09:00 01/15/20 10:50 Alogliptin PO 25 mg DAILY NICHOLE Administration Amlodipine Besylate 10 mg 01/14/20 09:00 01/15/20 08:28 Norvasc PO 10 mg DAILY NICHOLE Administration Enoxaparin Sodium 40 mg 01/14/20 09:00 01/15/20 08:29 Lovenox SC 40 mg 0900 NICHOLE Administration Fluoxetine HCl 40 mg 01/14/20 09:00 01/15/20 08:28 Prozac PO 40 mg DAILY NICHOLE Administration Lisinopril 20 mg 01/14/20 09:00 01/15/20 08:30 Zestril PO 20 mg DAILY NICHOLE Administration Lorazepam 2 mg 01/14/20 09:00 01/15/20 08:30 Ativan PO 2 mg TID [facility] Administration Mometasone Furoate/Formoterol Fumar 2 puff 01/14/20 06:30 01/15/20 06:50 Dulera 200 Mcg/5 Mcg Inhaler INH 2 puff BID-RT NICHOLE Administration Pantoprazole Sodium 40 mg 01/14/20 09:00 01/15/20 08:30 Protonix PO 40 mg BID [facility] Administration Pneumococcal Polyvalent Vaccine 0.5 ml 01/15/20 12:45 01/15/20 11:01 Pneumovax 23 IM 01/15/20 12:46 0.5 ml .ONCE ONE Administration Polyethylene Glycol 17 gm 01/15/20 10:15 01/15/20 11:00 Miralax PO 01/15/20 12:15 17 gm NOW NICHOLE Administration Pregabalin 100 mg 01/14/20 09:00 01/15/20 08:28 Lyrica PO 100 mg BID NICHOLE Administration - Exam General Appearance: awake alert Eye: PERRL ENT: normocephalic atraumatic, no oropharyngeal lesions, moist mucosa Neck: supple Heart: RRR Respiratory: CTAB Gastrointestinal: soft Extremities: no cyanosis, no clubbing, no edema Skin: normal turgor, no lesions, no rashes Neurological: cranial nerve grossly intact, normal sensation to touch, no weakness, no focal deficits, no new deficit Musculoskeletal: normal tone, normal strength, no muscle wasting Psychiatric: normal affect, normal behavior, A&O x 3, oriented to person, oriented to place, oriented to time Hosp A/P (1) Seizure disorder Code(s): G40.909 - EPILEPSY, UNSP, NOT INTRACTABLE, WITHOUT STATUS EPILEPTICUS Status: Acute (2) Depression Code(s): F32.9 - MAJOR DEPRESSIVE DISORDER, SINGLE EPISODE, UNSPECIFIED Status : Chronic Qualifiers: Depression Type: unspecified Qualified Code(s): F32.9 - Major depressive disorder, single episode, unspecified (3) Diabetes mellitus Code(s): E11.9 - TYPE 2 DIABETES MELLITUS WITHOUT COMPLICATIONS Status: Chronic Qualifiers: Diabetes mellitus type: type 2 Diabetes mellitus packager and strapper insulin use: without packager and strapper use Diabetes mellitus complication status: without complication Qualified Code(s): E11.9 - Type 2 diabetes mellitus without complications (4) Diabetes type 2, controlled Code(s): E11.9 - TYPE 2 DIABETES MELLITUS WITHOUT COMPLICATIONS Status: Chronic (5) Gastroparesis Code(s): K31.84 - GASTROPARESIS Status: Chronic (6) Hypertension Code(s): I10 - ESSENTIAL (PRIMARY) HYPERTENSION Status: Chronic Qualifiers: Hypertension type: essential hypertension Qualified Code(s): I10 - Essential (primary) hypertension - Plan PT/OT, out of bed/ambulate 59 year old with polysubstance abuse presented with breakthrough seizure. Continue Keppra 500 mg po bid. Observe seizure precautions. Neurochecks every 4 hours. Hyponatremia secondary to alcohol abuse. Continue management per primary team. Continue home medications. Patient does not have neurologist. Follow up with Dr. Rich as outpatient. PT/OT Continue medical management per primary team. Plan discussed with the stroke unit team during MFR rounds.
--- NOTE | 2020-01-15 13:50 | DIS ---
DATE OF ADMISSION: 01/13/2020 DATE OF DISCHARGE: 01/15/2020 DISCHARGE DISPOSITION: Home. FOLLOWUP: 1. Follow up with primary care physician, Dr. Bergman, in 1 week. 2. Follow up with Neurology, Dr. Rich, in 1 to 2 weeks. DISCHARGE INSTRUCTIONS: No driving until cleared by MD. The patient was extensively counseled on seizure precaution. DISCHARGE MEDICATIONS: Keppra 500 mg b.i.d. All other home medications were left unchanged. Beta-blockers were discontinued due to drug abuse. The patient was seen on the day of discharge. Denies any new complaints. SIGNIFICANT LABS: Urine drug screen positive for cocaine, cannabinoid. WBC 6.6 with hemoglobin 12.7. Sodium on admission was 125, at discharge is 131. Creatinine 1.1. TSH 0.5. Prolactin was 6.6. Basic metabolic profile after 1 week is recommended. Primary care physician advised to follow. BRIEF HOSPITAL COURSE: The patient is a 59-year-old male with seizure disorder in the past, presented to the emergency room with altered mentation and seizure. He had 2 episode of seizure that was witnessed by family. He was monitored in the stroke unit. His mentation gradually improved. He was loaded with Keppra. He was seen by Neurology, Dr. Zuniga. He did not have recurrent seizure during this hospital stay. Dr. Zuniga has cleared the patient for discharge on oral Keppra. He was advised to follow up with Neurology as outpatient. Seizure precaution was emphasized. No driving until cleared by MD. The patient was found to have hyponatremia with sodium of 125 on admission probably secondary to dehydration that improved to 131 after IV fluids. He also has a history of chronic hyponatremia. The patient's drug screen was positive for cocaine and cannabinoid. He was extensively counseled on lifestyle modification. DIAGNOSTIC TESTS: MRI of the brain was negative for acute CVA. EEG showed mild generalized nonspecific cerebral dysfunction. FINAL DIAGNOSES: 1. Breakthrough seizure. 2. Toxic metabolic encephalopathy secondary to above. 3. Seizure disorder with medication noncompliance. 4. [id number] hyponatremia. 5. Polysubstance abuse. 6. Anxiety. 7. Hypertension. 8. Diabetes mellitus type 2. 9. Irritable bowel syndrome. 10. The patient understands the above plan of care. TIME SPENT: Time coordinating the discharge of this patient was 36 minutes. Job ID: [id number]
[2020-01-15 16:51] VITALS: BP 133/84; TEMP 98.7
[2020-01-15] MEDS ORDERED: Senokot S 8.6-50 MG TAB PO SCH (21:00)
[2020-01-15] MEDS ORDERED: levETIRAcetam 500 MG TAB PO SCH (21:00)
[2020-01-16] MEDS ORDERED: Polyethylene Glycol 3350 17 GM Packet PO SCH (09:00)
--- NOTE | 2020-01-16 14:32 | EKG ---
Test Reason : Blood Pressure : / mmHG Vent. Rate : 095 BPM Atrial Rate : 095 BPM P-R Int : 166 ms QRS Dur : 072 ms QT Int : 346 ms P-R-T Axes : 071 038 047 degrees QTc Int : 434 ms Normal sinus rhythm Possible Left atrial enlargement Borderline ECG Confirmed by PO RUEDA ([id number]), index editor VIK [place] ([id number]) on 01/16/2020 2:31:51 PM Referred By: Confirmed By:PO Pillai
--- NOTE | 2020-01-16 14:32 | EKG ---
Test Reason : Blood Pressure : / mmHG Vent. Rate : 065 BPM Atrial Rate : 065 BPM P-R Int : 128 ms QRS Dur : 070 ms QT Int : 374 ms P-R-T Axes : 000 029 033 degrees QTc Int : 388 ms Normal sinus rhythm Normal ECG Confirmed by PO RUEDA ([id number]), editor publications VIK [place] ([id number]) on 01/16/2020 2:31:41 PM Referred By: Confirmed By:PO Pillai
== END 2020-01-15 19:32 | disposition home or self-care (01) | DRG 100 ==
LOC: ERS 17:51 → ERHOLD 20:59 → 2SE 01-14 11:44
PROVIDERS: ADMIT Internal Medicine; ATTEND Internal Medicine
DX: G40.919 Epilepsy, unspecified, intractable, without status epilepticus (principal); G92 Toxic encephalopathy; E87.1 Hypo-osmolality and hyponatremia; F15.20 Other stimulant dependence, uncomplicated; F19.10 Other psychoactive substance abuse, uncomplicated; F41.9 Anxiety disorder, unspecified; I10 Essential (primary) hypertension; E11.9 Type 2 diabetes mellitus without complications; K58.9 Irritable bowel syndrome, unspecified; F32.9 Major depressive disorder, single episode, unspecified; K21.9 Gastro-esophageal reflux disease without esophagitis; F14.10 Cocaine abuse, uncomplicated; K31.84 Gastroparesis; F10.10 Alcohol abuse, uncomplicated; F12.10 Cannabis abuse, uncomplicated; E86.0 Dehydration; Z91.15 Patient's noncompliance with renal dialysis; Z90.49 Acquired absence of other specified parts of digestive tract; Z88.6 Allergy status to analgesic agent; Z88.2 Allergy status to sulfonamides; Z88.8 Allergy status to other drugs, medicaments and biological substances
CPT/HCPCS: 36415; 36416; 70553; 80048; 80053; 80183; 80306; 83690; 83735; 83935; 84100; 84146; 84300; 84443; 85025; 90471; 90732; 93005; 95712; 95819; 95957; 96365; 96375; A9579; G0009; J1650; J1953; J2060

== ENCOUNTER 2020-08-10 14:13 | Inpatient (IN) | payer MEDICARE ==
[2020-08-10] MEDS ORDERED: Guaifenesin DM 100-10/5 ML UDCUP PO PRN (21:19)
[2020-08-10] MEDS ORDERED: Labetalol HCl 100 MG/20 ML VIAL SLOW IVP PRN (21:19)
[2020-08-10] MEDS ORDERED: hydrALAZINE 20 MG/ML VIAL SLOW IVP PRN (21:19)
[2020-08-10] MEDS ORDERED: Ondansetron PF 4 MG/2 ML Vial IVP PRN (21:19)
[2020-08-10] MEDS ORDERED: HYDROcodone/Acetaminophen 5/325 mg Tablet PO PRN (21:19)
[2020-08-10] MEDS ORDERED: cloNIDine 0.1 MG TAB PO PRN (21:19)
[2020-08-10] MEDS ORDERED: Promethazine HCl 12.5 MG in Sodium Chloride 0.9% 50 ML IVPB PRN (21:19)
[2020-08-10] MEDS ORDERED: Acetaminophen 325 MG TAB PO PRN (21:19)
--- NOTE | 2020-08-10 21:20 | PDOC.HHP ---
Hospitalist HPI - History of Present Illness Seizure, abdominal pain History of Present Illness: Patient is a 60 year old male with PMH chronic pancreatitis, alcohol abuse, HTN who presents to hospital as transfer for seizure. Patient had a witnessed seizure at neighbors house this AM while sitting in chair. lasted a few minutes, described as generalized shaking, was post ictal per EMS. He has history of seizures related to hyponatremia in the past. He drinks alcohol daily as well, and has chronic abdominal pain due to chronic pancreatitis. Patient not compliant with trileptal. CT scan abdomen read there and concerning for gastritis. Patient given keppra, IVF, protonix, ativan dose, Na 125, CO2 11, transferred here for further workup and care. Hospitalist ROS - Review of Systems Constitutional: denies: fever, chills, sweats, weakness, malaise, other Eyes: denies: pain, vision change, conjunctivae inflammation, eyelid inflammation, redness, other ENT: denies: ear pain, ear discharge, nose pain, nose discharge, nose congestion, mouth pain, mouth swelling, throat pain, throat swelling, other Respiratory: denies: cough, dry, shortness of breath, hemoptysis, SOB with excertion, pleuritic pain, sputum, wheezing, other Cardiovascular: denies: chest pain, palpitations, orthopnea, paroxysmal noc. dyspnea, edema, light headedness, other Gastrointestinal: reports: abdominal pain. denies: nausea, vomiting, diarrhea, constipation, melena, hematochezia, other Genitourinary: denies: dysuria, frequency, incontinence, hematuria, retention, other Musculoskeletal: denies: neck pain, shoulder pain, arm pain, back pain, hand pain, leg pain, foot pain, other Skin: denies: rash, lesions, matheus, bruising, other Neurological: reports: seizures All other systems reviewed; all pertinent +/- noted in HPI/Subj - Medication Medications: medication list reviewed, see transfer documents for list Hospitalist History - Past Medical History Other Medical History: bladder/thymus cancer, IBS, seizures, HTN, hypercholesterolemia, DM2 - Past Surgical History Past Surgical History: reports: no pertinent history - Family History Family History: reports: no pertinent history - Social History Alcohol: reports: Heavy (daily) Drugs: reports: cocaine - Exam General Appearance: NAD, awake alert Eye: PERRL, anicteric sclera ENT: normocephalic atraumatic, no oropharyngeal lesions, moist mucosa Neck: supple, symmetric, no JVD, no thyromegaly, no lymphadenopathy, no carotid bruit Heart: RRR, no murmur, no gallops, no rubs, normal peripheral pulses Respiratory: CTAB, no wheezes, no rales, no ronchi, normal chest expansion, no tachypnea, normal percussion Gastrointestinal: soft, non-tender, non-distended, normal bowel sounds, no palpable masses, no hepatomegaly, no splenomegaly, no bruit Extremities: no cyanosis, no clubbing, no edema Skin: normal turgor, no lesions, no rashes Neurological: cranial nerve grossly intact, normal sensation to touch, no weakness, no focal deficits, no new deficit Musculoskeletal: normal tone, normal strength, no muscle wasting Psychiatric: normal affect, normal behavior, A&O x 3 Hospitalist Results - Labs Lab results: labs, transfer documents reviewed, see transfer documents for further information Hospitalist H&P A/P - Plan Plan: Patient is a 60 year old male with PMH chronic pancreatitis, alcohol abuse, HTN who presents to hospital as transfer for seizure. # seizure # hyponatremia # metabolic acidosis # alcohol abuse Patient had a witnessed generalized seizure at [facility] this AM while sitting in chair. He has history of seizures related to hyponatremia in the past. He drinks alcohol daily as well, and has chronic abdominal pain due to chronic pancreatitis. Patient not compliant with trileptal. CT scan abdomen read there and concerning for gastritis. Patient given keppra, IVF, protonix, ativan dose, Na 125, CO2 11, transferred here for further workup and care. Ddx includes alcoholic ketoacidosis, hyponatremia, alcohol withdrawal - admit to floor - start D5NS, monitor BMP for recovery of CO2 and Na - ASE protocol - resume trileptal, seizure precaitions - folic acid/thiamine PO # gastritis - start BID PPI, likely due to alcohol abuse # DVT/GI ppx
[2020-08-10] MEDS ORDERED: Electrolyte Replacement Protocol 1 EACH FS SCH (21:30)
[2020-08-10] MEDS ORDERED: OXcarbazepine 150 MG TAB PO SCH (21:45)
[2020-08-10] MEDS: Morphine 2 MG/ML VIAL SLOW IVP PRN (23:03)
[2020-08-10] MEDS: Lorazepam 2 MG/ML VIAL SLOW IVP PRN (23:25)
[2020-08-10 23:31] VITALS: BMI 27.3
[2020-08-11] MEDS ORDERED: Sodium Chloride 0.9% 1,000 ML IV SCH (01:00)
[2020-08-11] MEDS ORDERED: Folic Acid 1 MG TAB PO SCH (01:00)
[2020-08-11] MEDS ORDERED: Dextrose 5 % And 0.9 % NaCl 1,000 ML IV SCH (01:00)
[2020-08-11] MEDS ORDERED: Thiamine 100 MG TAB PO SCH (01:00)
[2020-08-11] MEDS ORDERED: Dextrose 5 %-0.45 % NaCl 1,000 ML IV SCH (01:00)
[2020-08-11 05:14] LABS: #Eosinphils 0.1 thou/uL (0.0-0.7); #Lymphocytes 1.7 thou/uL (1.20-3.40); #Neutrophils 4.3 thou/uL (1.40-6.50); %Basophils 0.5 % (0.0-1.0); %Eosinophils 0.8 % (0.0-10.0); %Monocytes 14.1 % (0.0-10.0); %Neutrophils 60.5 % (42.0-75.0); Hemoglobin 13.6 g/dL (14.0-18.0); Mean Corpuscular HGB CONC 34.8 g/dL (32.0-36.0); Mean Corpuscular Hemoglobin 31.2 pg (27.0-31.0); Mean Corpuscular Volume 89.8 fL (78.0-98.0); Mean Platelet Volume 7.8 fL (7.4-10.4); Platelet Count 253 thou/uL (130-400); RBC Distribution Width 11.9 % (11.5-14.5); Red Blood Cell (RBC) Count 4.36 mill/uL (4.70-6.10); White Blood Cell (WBC) Count 7.2 thou/uL (4.8-10.8)
[2020-08-11 05:40] LABS: ALT (SGPT) 14 U/L (8-55); AST (SGOT) 25 U/L (5-34); Albumin 3.9 g/dL (3.4-4.8); Alkaline Phosphatase 129 U/L (40-110); Anion Gap 16 mmol/L (10-20); BUN (Urea Nitrogen) 10 mg/dL (8.4-25.7); Bilirubin, Direct 0.2 mg/dL (0.1-0.3); Bilirubin, Total 0.5 mg/dL (0.2-1.2); Calc. Creatinine Clearance 67 mL/min (70-130); Calcium 9.2 mg/dL (7.8-10.44); Carbon Dioxide 25 mmol/L (23-31); Chloride 98 mmol/L (98-107); Glucose 135 mg/dL (80-115); Magnesium 2.1 mg/dL (1.6-2.6); Potassium 4.2 mmol/L (3.5-5.1); Protein, Total 7.4 g/dL (5.8-8.1); Sodium 135 mmol/L (136-145)
[2020-08-11] MEDS: Thiamine 100 MG TAB PO SCH (08:28)
[2020-08-11] MEDS: Famotidine 20 MG TAB PO SCH ×2 (08:28→20:05)
[2020-08-11] MEDS: FLUoxetine HCl 20 MG CAP PO SCH (08:28)
[2020-08-11] MEDS: Amlodipine 10 MG TAB PO SCH (08:29)
[2020-08-11] MEDS: HYDROcodone/Acetaminophen 10/325 mg Tablet PO SCH ×5 (08:29→22:32)
[2020-08-11] MEDS: Folic Acid 1 MG TAB PO SCH (08:29)
[2020-08-11] MEDS: OXcarbazepine 150 MG TAB PO SCH ×2 (08:29→14:28)
[2020-08-11] MEDS: Lisinopril 20 MG TAB PO SCH (08:29)
[2020-08-11] MEDS: Polyethylene Glycol 3350 17 GM Packet PO SCH (08:30)
[2020-08-11] MEDS ORDERED: Pregabalin 50 MG CAP PO SCH (09:00)
[2020-08-11] MEDS: Alogliptin 25 MG TAB PO SCH (10:00)
[2020-08-11] MEDS: Sodium Chloride 0.9% 1,000 ML IV SCH ×3 (10:00→20:04)
[2020-08-11] MEDS: Lorazepam 2 MG/ML VIAL SLOW IVP PRN (10:07)
[2020-08-11] MEDS: Mometasone 200 MCG/Formoterol 5 MCG 120 PUFF INHALER INH SCH ×2 (10:20→19:08)
[2020-08-11 10:28] LABS: SARS-CoV-2 MS2 Positive; SARS-CoV-2 N Gene Negative; SARS-CoV-2 S Gene Negative; SARS-CoV-2 by NAA Not Detected (NotDetected); SARS-CoV-2 orf1ab Negative
--- NOTE | 2020-08-11 12:04 | PDOC.HOSPP ---
- Subjective Encounter Date: 08/11/20 Subjective: No acute events overnight. Patient is doing well. Mental status is at baseline. No focal deficits neurologically - Objective Vital Signs & Weight: Vital Signs (12 hours) Temp Pulse Resp BP Pulse Ox 08/11/20 11:41 99.0 F 74 17 145/79 H 97 08/11/20 07:52 99.1 F 90 17 143/79 H 98 08/11/20 04:00 98.8 F 100 20 155/79 H 100 Weight Weight 180 lb I&O: 08/10/20 08/11/20 08/12/20 06:59 06:59 06:59 Intake Total 120 Output Total 400 Balance -280 Result Diagrams: 08/11/20 04:40 08/11/20 04:40 Hospitalist ROS - Medication Medications: Active Medications Generic Name Dose Route Start Last Admin Trade Name Freq PRN Reason Stop Dose Admin Hydrocodone Bitart/Acetaminophen 1 tab 08/11/20 09:00 08/11/20 08:29 Hydrocodone/Acetaminophen 10/325 Mg Tablet PO 1 tab QID NICHOLE Administration Alogliptin Benzoate 25 mg 08/11/20 09:00 08/11/20 10:00 Alogliptin 25 Mg Tab PO 25 mg DAILY NICHOLE Administration Amlodipine Besylate 10 mg 08/11/20 09:00 08/11/20 08:29 Amlodipine 10 Mg Tab PO 10 mg DAILY NICHOLE Administration Famotidine 20 mg 08/11/20 09:00 08/11/20 08:28 Famotidine 20 Mg Tab PO 20 mg BID NICHOLE Administration Fluoxetine HCl 40 mg 08/11/20 09:00 08/11/20 08:28 Fluoxetine Hcl 20 Mg Cap PO 40 mg DAILY NICHOLE Administration Folic Acid 1 mg 08/11/20 09:00 08/11/20 08:29 Folic Acid 1 Mg Tab PO 1 mg DAILY NICHOLE Administration Sodium Chloride 1,000 mls @ 125 mls/hr 08/11/20 09:00 08/11/20 10:00 Normal Saline 0.9% IV 1,000 mls .Q8H NICHOLE Administration Lisinopril 20 mg 08/11/20 09:00 08/11/20 08:29 Lisinopril 20 Mg Tab PO 20 mg DAILY NICHOLE Administration Lorazepam 2 mg 08/10/20 21:18 08/11/20 10:07 Lorazepam 2 Mg/Ml Vial SLOW IVP 2 mg Q4H PRN Administration withdrawal, anxiety Mometasone Furoate/Formoterol Fumar 2 puff 08/11/20 06:30 08/11/20 10:20 Mometasone 200 Mcg/Formoterol 5 Mcg 120 Puff Inhaler INH 2 puff BID-RT NICHOLE Administration Morphine Sulfate 2 mg 08/10/20 21:29 08/10/20 23:03 Morphine 2 Mg/Ml Vial SLOW IVP 2 mg Q4H PRN Administration severe pain 4-10 Oxcarbazepine 150 mg 08/11/20 09:00 08/11/20 08:29 Oxcarbazepine 150 Mg Tab PO 150 mg TID NICHOLE Administration Pantoprazole Sodium 40 mg 08/11/20 09:00 08/11/20 08:30 Pantoprazole 40 Mg Tab PO 40 mg BID NICHOLE Administration Polyethylene Glycol 17 gm 08/11/20 09:00 08/11/20 08:30 Polyethylene Glycol 3350 17 Gm Packet PO Not Given DAILY NICHOLE Pregabalin 100 mg 08/11/20 09:00 08/11/20 08:28 Pregabalin 50 Mg Cap PO 100 mg BID NICHOLE Administration Thiamine HCl 100 mg 08/11/20 09:00 08/11/20 08:28 Thiamine 100 Mg Tab PO 100 mg DAILY NICHOLE Administration - Exam General Appearance: NAD, awake alert Eye: anicteric sclera Neck: supple, symmetric Heart: RRR, no murmur, no gallops, no rubs Respiratory: CTAB, no wheezes, no rales, no ronchi Gastrointestinal: soft, non-tender, non-distended Extremities: no cyanosis, no clubbing, no edema Neurological: cranial nerve grossly intact Musculoskeletal: normal tone Psychiatric: normal affect, normal behavior Hosp A/P (1) Bladder cancer Status: Acute (2) Seizure disorder Code(s): G40.909 - EPILEPSY, UNSP, NOT INTRACTABLE, WITHOUT STATUS EPILEPTICUS Status: Acute (3) Depression Code(s): F32.9 - MAJOR DEPRESSIVE DISORDER, SINGLE EPISODE, UNSPECIFIED Status: Chronic Qualifiers: Depression Type: unspecified Qualified Code(s): F32.9 - Major depressive disorder, single episode, unspecified (4) Diabetes type 2, controlled Code(s): E11.9 - TYPE 2 DIABETES MELLITUS WITHOUT COMPLICATIONS Status: Chronic (5) Hypertension Code(s): I10 - ESSENTIAL (PRIMARY) HYPERTENSION Status: Chronic Qualifiers: Hypertension type: essential hypertension Qualified Code(s): I10 - Essential (primary) hypertension - Plan Assessment Patient is a 60 year old male with a PMH of bladder cancer, seizure disorder, HTN and type II DM. He is admitted for witness seizure episodes. Post ictal on arrival. Doing well now. He has been placed on keppra and resumed on home dose of oxcarbazepine. Patient insists that he has been compliant on his Trileptal. Acute seizures WILLIAM Bladder cancer HTN DM-2 PLAN: I will check Trileptal levels Continue Trileptal and PRN ativan UA to rule out inciting factors such as UTI, which may low seizure threshold Hydrate appropriately I will consult Neurology to evaluate if additional AED is needed in this case Since patient is neurologically intact at this point, I will defer decision to head CT Otherwise, resume home regimen PT/OT
--- NOTE | 2020-08-11 13:11 | CON ---
NEUROLOGY CONSULTATION DATE OF CONSULTATION: 08/11/2020 REASON FOR CONSULTATION: Breakthrough seizure, abdominal pain. HISTORY OF PRESENT ILLNESS: Mr. Cardona is a 60-year-old male with medical history significant for chronic pancreatitis, alcohol abuse, hypertension, presented to the hospital as a transfer from another hospital outside facility because of breakthrough seizure. The patient had a witnessed seizure at house yesterday morning, which was witnessed at the neighbor's house. He was sitting in a chair and all of a sudden he passed out and has a generalized tonic-clonic shaking and was postictal for sometime. EMS was called, and at that time, he was postictal. He has history of seizures related to hyponatremia in the past. He drinks alcohol on a regular basis and also has chronic abdominal pain due to chronic pancreatitis. The patient is not compliant with the seizure medication. He takes Trileptal for seizures. CT scan of the abdomen showed gastritis. The patient was given Keppra in the emergency room, intravenous fluid, Ativan. The sodium was 125 and carbon dioxide was 11. He was transferred to the floor for further evaluation. The patient denies chest pain, abdominal pain, focal weakness, focal paresthesias, double vision, vertigo, recent shortness of breath, chest pain, palpitations, or recent exposure to COVID. REVIEW OF SYSTEMS: All systems reviewed and were negative except the pertinent positives and negatives mentioned in the HPI. MEDICATIONS: Medication list reviewed. See the transfer documents for list. PAST MEDICAL HISTORY: Bladder cancer, irritable bowel syndrome, seizures, hypertension, hypercholesteremia, diabetes mellitus. PAST SURGICAL HISTORY: No significant past surgical history. FAMILY HISTORY: No significant family history. SOCIAL HISTORY: The patient has history of alcohol abuse and he also abuses cocaine. Allergies: Sulfamethoxazole, sulfa drugs and ketorolac Vital Signs & Weight: Vital Signs (12 hours) Temp Pulse Resp BP Pulse Ox 08/11/20 11:41 99.0 F 74 17 145/79 H 97 08/11/20 07:52 99.1 F 90 17 143/79 H 98 08/11/20 04:00 98.8 F 100 20 155/79 H 100 Weight Weight 180 lb I&O: 08/10/20 08/11/20 08/12/20 06:59 06:59 06:59 Intake Total 120 Output Total 400 Balance -280 Active Medications Generic Name Dose Route Start Last Admin Trade Name Freq PRN Reason Stop Dose Admin Hydrocodone Bitart/Acetaminophen 1 tab 08/11/20 09:00 08/11/20 08:29 Hydrocodone/Acetaminophen 10/325 Mg Tablet PO 1 tab QID NICHOLE Administration Alogliptin Benzoate 25 mg 08/11/20 09:00 08/11/20 10:00 Alogliptin 25 Mg Tab PO 25 mg DAILY NICHOLE Administration Amlodipine Besylate 10 mg 08/11/20 09:00 08/11/20 08:29 Amlodipine 10 Mg Tab PO 10 mg DAILY NICHOLE Administration Famotidine 20 mg 08/11/20 09:00 08/11/20 08:28 Famotidine 20 Mg Tab PO 20 mg BID NICHOLE Administration Fluoxetine HCl 40 mg 08/11/20 09:00 08/11/20 08:28 Fluoxetine Hcl 20 Mg Cap PO 40 mg DAILY NICHOLE Administration Folic Acid 1 mg 08/11/20 09:00 08/11/20 08:29 Folic Acid 1 Mg Tab PO 1 mg DAILY NICHOLE Administration Sodium Chloride 1,000 mls @ 125 mls/hr 08/11/20 09:00 08/11/20 10:00 Normal Saline 0.9% IV 1,000 mls .Q8H NICHOLE Administration Lisinopril 20 mg 08/11/20 09:00 08/11/20 08:29 Lisinopril 20 Mg Tab PO 20 mg DAILY NICHOLE Administration Lorazepam 2 mg 08/10/20 21:18 08/11/20 10:07 Lorazepam 2 Mg/Ml Vial SLOW IVP 2 mg Q4H PRN Administration withdrawal, anxiety Mometasone Furoate/Formoterol Fumar 2 puff 08/11/20 06:30 08/11/20 10:20 Mometasone 200 Mcg/Formoterol 5 Mcg 120 Puff Inhaler INH 2 puff BID-RT NICHOLE Administration Morphine Sulfate 2 mg 08/10/20 21:29 08/10/20 23:03 Morphine 2 Mg/Ml Vial SLOW IVP 2 mg Q4H PRN Administration severe pain 4-10 Oxcarbazepine 150 mg 08/11/20 09:00 08/11/20 08:29 Oxcarbazepine 150 Mg Tab PO 150 mg TID NICHOLE Administration Pantoprazole Sodium 40 mg 08/11/20 09:00 08/11/20 08:30 Pantoprazole 40 Mg Tab PO 40 mg BID NICHOLE Administration Polyethylene Glycol 17 gm 08/11/20 09:00 08/11/20 08:30 Polyethylene Glycol 3350 17 Gm Packet PO Not Given DAILY NICHOLE Pregabalin 100 mg 08/11/20 09:00 08/11/20 08:28 Pregabalin 50 Mg Cap PO 100 mg BID NICHOLE Administration Thiamine HCl 100 mg 08/11/20 09:00 08/11/20 08:28 Thiamine 100 Mg Tab PO 100 mg DAILY NICHOLE Administration PHYSICAL EXAMINATION: General Appearance: NAD, awake alert Eye: anicteric sclera Neck: supple, symmetric Heart: RRR, no murmur, no gallops, no rubs Respiratory: CTAB, no wheezes, no rales, no ronchi Gastrointestinal: soft, non-tender, non-distended Extremities: no cyanosis, no clubbing, no edema Neurological: Mental Status: The patient is alert and oriented to person, place and time. Speech is clear. cranial nerve grossly intact. Motor muscle tone and bulk are normal. Strength 5/5 bilaterally. Sensory intact. Cerebellar, finger-nose testing intact. Gait deferred due to patient's safety reason. Data reviewed: Labs reviewed which were significant for hyponatremia ASSESSMENT AND PLAN: (1) Bladder cancer Status: Acute (2) Seizure disorder Code(s): G40.909 - EPILEPSY, UNSP, NOT INTRACTABLE, WITHOUT STATUS EPILEPTICUS Status: Acute (3) Depression Code(s): F32.9 - MAJOR DEPRESSIVE DISORDER, SINGLE EPISODE, UNSPECIFIED Status: Chronic Qualifiers: Depression Type: unspecified Qualified Code(s): F32.9 - Major depressive disorder, single episode, unspecified (4) Diabetes type 2, controlled Code(s): E11.9 - TYPE 2 DIABETES MELLITUS WITHOUT COMPLICATIONS Status: Chronic (5) Hypertension Code(s): I10 - ESSENTIAL (PRIMARY) HYPERTENSION Status: Chronic Qualifiers: Hypertension type: essential hypertension Qualified Code(s): I10 - Essential (primary) hypertension Mr. Cardona is a 60-year-old male with history significant for chronic pancreatitis, alcohol abuse, hypertension, presented because of breakthrough seizures. The patient does have history of seizure, but most likely these are provoked seizures secondary to hyponatremia, metabolic acidosis and alcohol abuse exacerbating the hyponatremia. Discontinue Trileptal as it is predisposed to worsening hyponatremia, which in turn can cause seizures and confusion. Start Keppra 500 mg PO BID. Increase pregabalin 150 mg p.o. twice daily. Ativan 2 mg IV for seizure greater than 2 minutes. EEG to rule out cortical irritability and the presence of interictal epileptiform discharges. MRI of the brain with and without contrast to evaluate for seizure focus and to rule out brain metastasis. Neuro checks every 4 hours. Observe seizure precautions. CIWA protocol. Start folic acid, thiamine. GI prophylaxis and DVT prophylaxis. Further recommendations depend upon the results of the testing. We will continue to follow. Plan discussed in detail with the patient and the nursing staff Thank you for the consult. Job ID: [id number] [facility]PITALRosas
[2020-08-11] MEDS: Morphine 2 MG/ML VIAL SLOW IVP PRN (16:25)
--- NOTE | 2020-08-11 16:40 | PDOC.EEG ---
Neurology EEG Report - Report Report: This EEG was performed using 24 channel [employer] video EEG machine with 24 disc maria r ctrodes. This was an extended 2 hours 6 minutes of inpatient video EEG recording. Digital analysis of the EEG was done for spike and seizure detection which revealed no abnormalities. Background: There is a nonsustained posterior background rhythm of 8.5 -9 Hz. EEG with excessive beta activity intermixed with the background. Hyperventilation: Not performed. Photic Stimulation: No significant response. Sleep: No stage change is observed. EEG Diagnosis: Rare irregular theta activity seen during the recording. Nonsustained posterior background rhythm. Clinical Interpretation: This EEG is consistent with mild generalized nonspecific cerebral dysfunction.
[2020-08-11 19:52] LABS: Bacteria/HPF None Seen HPF (None Seen); Bilirubin Negative (Negative); Blood, Urine Trace (Negative); Clarity Clear (Clear); Glucose, Urine (Dipstick) Normal (Negative); Ketone, Urine Negative (Negative); Leukocyte Negative Leu/uL (Negative); Nitrite Negative (Negative); Protein, Urine (Dipstick) Negative (Neg-Trace); RBC/HPF 0-3 HPF (0-3); Specific Gravity, Urine 1.023 (1.002-1.036); Squamous Epithelial 0-3 HPF (0-3); Urobilinogen Normal mg/dL (Less than 2); WBC/HPF 0-3 HPF (0-3); pH, Urine 6.5 (5.0-9.0)
[2020-08-11 19:59] LABS: Urine Culture Reflex No No
[2020-08-11] MEDS: Pregabalin 75 MG CAP PO SCH (20:05)
[2020-08-11] MEDS: levETIRAcetam 500 MG TAB PO SCH (20:06)
[2020-08-11] MEDS ORDERED: Enoxaparin Sodium 40 MG/0.4 ML SYRINGE SC SCH (21:00)
[2020-08-12] MEDS ORDERED: HumaLOG 300 UNITS/3 ML VIAL SC PRN ×2 (00:58)
[2020-08-12] MEDS ORDERED: Dextrose 5% in Water 1,000 ML IV PRN (00:58)
[2020-08-12] MEDS ORDERED: Dextrose 50% Abboject 50 ML SYRINGE SLOW IVP PRN (00:58)
[2020-08-12] MEDS: Sodium Chloride 0.9% 1,000 ML IV SCH (04:15)
[2020-08-12 05:01] LABS: Anion Gap 13 mmol/L (10-20); BUN (Urea Nitrogen) 11 mg/dL (8.4-25.7); Calc. Creatinine Clearance 76 mL/min (70-130); Calcium 8.6 mg/dL (7.8-10.44); Carbon Dioxide 24 mmol/L (23-31); Chloride 102 mmol/L (98-107); Glucose 91 mg/dL (80-115); Magnesium 1.9 mg/dL (1.6-2.6); Potassium 4.2 mmol/L (3.5-5.1); Sodium 135 mmol/L (136-145)
[2020-08-12 06:11] LABS: Eosinophils 2 % (0-10); Hemoglobin 13.1 g/dL (14.0-18.0); Lymphocytes 45 % (21-51); MDiff Complete? YES; Mean Corpuscular HGB CONC 33.7 g/dL (32.0-36.0); Mean Corpuscular Hemoglobin 30.7 pg (27.0-31.0); Mean Corpuscular Volume 91.1 fL (78.0-98.0); Mean Platelet Volume 7.6 fL (7.4-10.4); Monocytes 14 % (0-10); Neutrophil 22 % (42-75); Platelet Count 249 thou/uL (130-400); Reactive Lymphocytes 16 % (0-10); Red Blood Cell (RBC) Count 4.27 mill/uL (4.70-6.10); White Blood Cell (WBC) Count 5.4 thou/uL (4.8-10.8)
[2020-08-12] MEDS ORDERED: Magnesium 2 GM/50 ML 2 GM in Premix Bag 1 BAG IVPB SCH (06:45)
[2020-08-12] MEDS: Lorazepam 2 MG/ML VIAL SLOW IVP PRN ×2 (08:35→14:21)
[2020-08-12] MEDS: Pregabalin 75 MG CAP PO SCH (08:36)
[2020-08-12] MEDS: HYDROcodone/Acetaminophen 10/325 mg Tablet PO SCH ×2 (08:38→14:17)
[2020-08-12] MEDS: Amlodipine 10 MG TAB PO SCH (08:40)
[2020-08-12] MEDS: Lisinopril 20 MG TAB PO SCH (08:41)
[2020-08-12] MEDS: Folic Acid 1 MG TAB PO SCH (08:41)
[2020-08-12] MEDS: levETIRAcetam 500 MG TAB PO SCH (08:42)
[2020-08-12] MEDS: Famotidine 20 MG TAB PO SCH (08:42)
[2020-08-12] MEDS: FLUoxetine HCl 20 MG CAP PO SCH (08:42)
[2020-08-12] MEDS: Polyethylene Glycol 3350 17 GM Packet PO SCH (08:43)
[2020-08-12] MEDS: Thiamine 100 MG TAB PO SCH (08:43)
--- NOTE | 2020-08-12 09:50 | MRI ---
MRI of thebrain with and without contrast: 08/12/2020 COMPARISON:01/14/2020 HISTORY:Seizures, bladder cancer TECHNIQUE: Multiplanar multisequence MR imaging of thebrain with and without contrast Findings:Thin section gradient echo imaging and FLAIR imaging obtained in the coronal plane. FLAIR im aging is limited by motion and gradient echo imaging is limited secondary to artifact associated with a metallic structure on the left. The coronal gradient echo imaging demonstrates no focal abnorm ality. The coronal FLAIR and coronal thin section T1 imaging demonstrates no focal abnormality within the hippocampi although imaging is limited secondary to motion. The regional bone marrow signal intensity appears grossly unremarkable. There is degenerative change at the atlantoaxial interspace. The diffusion weighted imaging is limited by artifact on the left. No evidence for acute infarction i s apparent. Arterial flow voids at the axial level of the skull base appear grossly unremarkable on the T2-weight ed imaging. Motion limited postcontrast imaging demonstrates no discrete focus of abnormal enhancement within the brain parenchyma. The imaged paranasal sinuses and mastoid air cells appear grossly unremarkable. IMPRESSION:Motion limited examination demonstrating no acute findings.
[2020-08-12] MEDS: Alogliptin 25 MG TAB PO SCH (10:05)
[2020-08-12] MEDS ORDERED: Magnevist 469MG/ML 20 ML VIAL ONE (10:51)
[2020-08-12] MEDS: Mometasone 200 MCG/Formoterol 5 MCG 120 PUFF INHALER INH SCH (11:15)
--- NOTE | 2020-08-12 12:52 | PDOC.DS.DS ---
Provider - Provider Date of Admission: 08/10/20 14:13 Date of Discharge: 08/12/20 Admitting Provider: Tamela Barroso MD Consultations: Neurology Primary Care Physician: Layton Bergman DO Course - Hospital Course Hospital Course: Patient is a 60 year old male with a PMH of bladder cancer, seizure disorder, and polysubstance abuse. He was admitted for witness breakthrough seizure episodes. He takes oxcarbazepine and was moderately hyponatremic. He received Keppra and was placed on PRN ativan. Neurology recommended discontinuing oxcarbazepine due to hyponatremia. Instead, they continued patient on keppra and increased his pregabalin to 150 mg BID. EEG was negative for epileptiform discharges and his MRI Brain ruled out metastatic disease. He has been cleared by both PT/OT. I spent time to career guidance counselor patient on alcohol cessation. Otherwise, he is medically cleared for discharge. Resuscitation Status: 08/10/20 21:19 Resuscitation Status Routine Resuscitation Status: FULL: Full Resuscitation - Labs Lab Results: 08/12/20 04:24 08/12/20 04:24 Abnormal Lab Results - Last 48 hrs 08/11/20 04:40: Sodium 135 L, Creatinine 1.34 H, Alkaline Phosphatase 129 H 08/11/20 04:40: RBC 4.36 L, Hgb 13.6 L, Hct 39.2 L, MCH 31.2 H, Monocytes % 14.1 H, Monocytes # 1.0 H 08/11/20 19:40: Urine Blood Trace A 08/12/20 04:24: Sodium 135 L 08/12/20 04:24: RBC 4.27 L, Hgb 13.1 L, Hct 38.9 L - Physical Exam Vitals: Vital Signs (12 hours) Temp Pulse Pulse Pulse Resp BP BP 08/12/20 10:47 91 88 118/63 134/76 08/12/20 07:55 98.3 F 82 14 08/12/20 04:20 98.1 F 68 20 BP Pulse Ox Pulse Ox Pulse Ox 08/12/20 10:47 97 98 08/12/20 07:55 152/87 H 98 08/12/20 04:20 166/84 H 99 Weight Weight 192 lb Physical Exam: The patient was seen and examined on the day of discharge. General: Not in acute distress. Alert and awake HEENT: Head atraumatic, normocephalic. EOM intact Pulmonary: Lungs are clear to auscultation bilaterally CVS: Normal S1 and S2. Regular rate. Abdomen: Soft, nontender, nondistended Extremities: Without edema. Good range of motion in all extremities Skin: Warm and well perfused Psych: Mood and affect appropriate. Neuro: Grossly intact Problem - Discharge Plan Assessment: please refer to hospital course - Problem (1) Bladder cancer Status: Acute (2) Seizure disorder Code(s): G40.909 - EPILEPSY, UNSP, NOT INTRACTABLE, WITHOUT STATUS EPILEPTICUS Status: Acute (3) Depression Code(s): F32.9 - MAJOR DEPRESSIVE DISORDER, SINGLE EPISODE, UNSPECIFIED Status: Chronic Qualifiers: Depression Type: unspecified Qualified Code(s): F32.9 - Major depressive disorder, single episode, unspecified (4) Diabetes type 2, controlled Code(s): E11.9 - TYPE 2 DIABETES MELLITUS WITHOUT COMPLICATIONS Status: Chronic (5) Hypertension Code(s): I10 - ESSENTIAL (PRIMARY) HYPERTENSION Status: Chronic Qualifiers: Hypertension type: essential hypertension Qualified Code(s): I10 - Essential (primary) hypertension Plan - Discharge Medications Prescriptions: Folic Acid [Folvite] 1 mg PO DAILY 2 Days #30 tab levETIRAcetam [Keppra] 500 mg PO BID #60 tab Pregabalin [Lyrica] 150 mg PO BID #60 cap Thiamine 100 mg PO DAILY #30 tab Home Medications: Medication Instructions Recorded Confirmed Type FLUoxetine HCl [Prozac] 40 mg PO DAILY 01/18/14 08/10/20 History Lisinopril 20 mg PO DAILY 01/18/14 08/10/20 History Lorazepam [Ativan] 2 mg PO TID 01/18/14 08/10/20 History Fluticasone/Salmeterol [Advair 1 inh IH DAILY 03/29/17 08/10/20 History Diskus 250/50] Ipratropium/Albuterol Sulfate 2 puff IH QID PRN 03/29/17 08/10/20 History [Combivent Respimat] HYDROcodone/Acetaminophen [[place] 1 each PO QID 08/26/17 08/10/20 History 10-325 Tablet] Amlodipine [Norvasc] 10 mg PO DAILY #30 tab 06/04/19 08/10/20 Rx sitaGLIPtin Phosphate [Januvia] 100 mg PO DAILY 06/04/19 08/10/20 History tiZANidine HCl [Tizanidine HCl] 4 mg PO Q8HR PRN 06/04/19 08/10/20 History Esomeprazole Magnesium [Nexium] 40 mg PO DAILY 01/14/20 08/10/20 History levETIRAcetam [Keppra] 500 mg PO BID #60 tab 01/15/20 08/10/20 Rx Folic Acid [Folvite] 1 mg PO DAILY 2 Days #30 tab 08/12/20 Rx Pregabalin [Lyrica] 150 mg PO BID #60 cap 08/12/20 Rx Thiamine 100 mg PO DAILY #30 tab 08/12/20 Rx cloNIDine [Catapres] 0.1 mg PO BID PRN tab 08/12/20 Rx levETIRAcetam [Keppra] 500 mg PO BID #60 tab 08/12/20 Rx Allergies: Sulfa (Sulfonamide Antibiotics) Allergy (Intermediate, Verified 08/10/20 21:47) Rash ketorolac [From Toradol] Allergy (Mild, Verified 08/10/20 21:47) per pt studdering, increased back pain sulfamethoxazole [From Bactrim] Allergy (Verified 08/10/20 21:47) Rash PER pt, rash and emesis tramadol Allergy (Verified 08/10/20 21:47) per pt causes shakiness, confusion, seizure trimethoprim [From Bactrim] Allergy (Verified 08/10/20 21:47) Rash PER pt rash and emesis - Follow up Plan Referrals: Layton Bergman DO [Primary Care Provider] - Disposition: HOME Quality - Care Measures CORE MEASURES:: N/A - Stroke/TIA Did you prescribe antithrombotic therapy?: No Specify reason for no DC antithrombotic therapy: Treatment not indicated
[2020-08-12 16:39] VITALS: BP 129/64; TEMP 98.9
--- NOTE | 2020-08-15 06:38 | PQF ---
CLINICAL DOCUMENTATION CLARIFICATION FORM: Dear : Prince Kanika Date / Time: 08/15/20 06:37 Please exercise your independent, professional judgment in responding to the clarification form. Clinical indicators are provided on the bottom of this form for your review Based on your clinical judgment, can you please specify etiology of patients seizure and abdominal pain? Please check appropriate box(es): [ x ] Seizure disorder [ ] WILLIAM [x ] Hyponatremia [ ] Gastritis [ ] Alcoholic gastritis [x ] Other diagnosis, please specify _alcoholism [ ] Unable to determine Physician Signature: Date/Time: For continuity of documentation, please document condition throughout progress notes and discharge summary. Thank You. To be completed by CDI/Coding staff for physician review: Present Clinical Indicators - Signs / Symptoms / Labs Results and Location in Medical Record [x] breakthrough seizure episode DS 08/12 [x] Chronic abdominal pain due to chronic pancreatitis Consult 08/11 [x] most likely these are provoked seizure secondary to hypontaremia, metabolic acidosis and alcohol abuse exacerbating hyponatremia Consult 08/11 [x] Sodium: 08/1194=228 08/1250=021 Laboratory 08/11 [x] BUN=10 Creatinine=1.34 GFR=66 Laboratory 08/11 Present Risk Factors Results and Location in Medical Record [x] 60 years old male DS 08/12 [x] Seizure disorder DS 08/12 [x] Alcohol Abuse Consult 08/11 [x] WILLIAM PN 08/11 [x] Hyponatremia PN 08/11 [x] DM PN 08/11 Present Treatments Results and Location in Medical Record [x] IVF MAR 08/11 [x] Monitor and replacement of electrolytes PN 08/11 [x] Keppra 500mg Oral SEP 26 [x] Neurology Consult Consult 08/11 [x] Pepcid 20mg Oral SEP 26 CDS/Customer Assistance Representative Signature:Kayleneaidan Alma Landon Phone #: [phone] Date/Time:08/15/20 This is a permanent part of the [facility] Record [facility]
== END 2020-08-12 16:39 | disposition home or self-care (01) | DRG 101 ==
LOC: 2NO 14:13 → OBSVTOIN 14:13
PROVIDERS: ADMIT Internal Medicine; ATTEND Internal Medicine
DX: G40.909 Epilepsy, unspecified, not intractable, without status epilepticus (principal); K86.1 Other chronic pancreatitis; E87.1 Hypo-osmolality and hyponatremia; E87.2 Acidosis; N17.9 Acute kidney failure, unspecified; Z20.822 Contact with and (suspected) exposure to COVID-19; R10.9 Unspecified abdominal pain; I10 Essential (primary) hypertension; C67.9 Malignant neoplasm of bladder, unspecified; E78.00 Pure hypercholesterolemia, unspecified; E11.9 Type 2 diabetes mellitus without complications; K29.70 Gastritis, unspecified, without bleeding; F32.9 Major depressive disorder, single episode, unspecified; Z88.5 Allergy status to narcotic agent; Z88.2 Allergy status to sulfonamides; Z88.8 Allergy status to other drugs, medicaments and biological substances; Z85.238 Personal history of other malignant neoplasm of thymus; F10.20 Alcohol dependence, uncomplicated
CPT/HCPCS: 36415; 36416; 70553; 80048; 80076; 80183; 81001; 83735; 85025; 87635; 94664; 95712; 95819; 95957; A9579; J1650; J2060; J2270; J3475; U0003; U0005

== ENCOUNTER 2020-12-05 22:52 | Inpatient (IN) | payer MEDICARE ==
[2020-12-05] MEDS ORDERED: Dextrose 5% in Water 1,000 ML IV PRN (23:51)
[2020-12-05] MEDS ORDERED: Dextrose 50% Abboject 50 ML SYRINGE SLOW IVP PRN (23:51)
[2020-12-05] MEDS ORDERED: Ondansetron ODT 4 MG TAB PO PRN (23:51)
[2020-12-05] MEDS ORDERED: Acetaminophen 325 MG TAB PO PRN (23:51)
[2020-12-05] MEDS ORDERED: HYDROcodone/Acetaminophen 5/325 mg Tablet PO PRN (23:51)
[2020-12-05] MEDS ORDERED: Ondansetron PF 4 MG/2 ML Vial IVP PRN (23:51)
[2020-12-06 00:45] VITALS: BMI 30.7
[2020-12-06] MEDS ORDERED: Labetalol HCl 100 MG/20 ML VIAL SLOW IVP PRN ×2 (01:01→08:46)
[2020-12-06] MEDS: hydrALAZINE 20 MG/ML VIAL SLOW IVP PRN ×4 (01:33→21:37)
[2020-12-06] MEDS: Morphine 4 MG/ML VIAL SLOW IVP PRN ×4 (01:41→21:36)
[2020-12-06] MEDS ORDERED: diphenhydrAMINE 50 MG/ML VIAL IVP SCH (02:00)
[2020-12-06 03:50] LABS: Anion Gap 17 mmol/L (10-20); BUN (Urea Nitrogen) 7 mg/dL (8.4-25.7); Calc. Creatinine Clearance 80 mL/min (70-130); Calcium 9.3 mg/dL (7.8-10.44); Carbon Dioxide 17 mmol/L (23-31); Chloride 98 mmol/L (98-107); Glucose 164 mg/dL (80-115); Sodium 127 mmol/L (136-145)
[2020-12-06] MEDS: Enoxaparin Sodium 40 MG/0.4 ML SYRINGE SC SCH (08:48)
[2020-12-06] MEDS: Famotidine/PF 20 mg/2ml Vial SLOW IVP SCH ×2 (08:52→21:36)
[2020-12-06] MEDS: levETIRAcetam in NS 500 MG in Premix Bag 1 BAG IVPB SCH ×2 (08:56→21:35)
[2020-12-06] MEDS ORDERED: methylPREDNISolone Sod Succ/PF 125 MG/2 ML VIAL IVP SCH (09:00)
[2020-12-06] MEDS ORDERED: cloNIDine 0.1 MG TAB PO PRN (09:06)
[2020-12-06] MEDS ORDERED: Non-Formulary Item 1 EACH (Lorazepam [Lorazepam] 2 MG Tablet) PO PRN (09:07)
[2020-12-06] MEDS: Sodium Chloride 0.9% 1,000 ML IV SCH ×2 (09:25→18:03)
[2020-12-06] MEDS ORDERED: Lorazepam 1 MG TAB PO PRN (09:31)
[2020-12-06 09:38] LABS: #Lymphocytes 0.7 thou/uL (1.20-3.40); #Monocytes 0.3 thou/uL (0.11-0.59); #Neutrophils 7.5 thou/uL (1.40-6.50); %Basophils 0.5 % (0.0-1.0); %Eosinophils 0.2 % (0.0-10.0); %Lymphocytes 7.9 % (21.0-51.0); %Neutrophils 87.4 % (42.0-75.0); Band 1 % (5-11); Eosinophils 1 % (0-10); Lymphocytes 3 % (21-51); MDiff Complete? YES; Mean Corpuscular HGB CONC 34.1 g/dL (32.0-36.0); Mean Corpuscular Hemoglobin 30.1 pg (27.0-31.0); Mean Corpuscular Volume 88.2 fL (78.0-98.0); Mean Platelet Volume 8.8 fL (7.4-10.4); Neutrophil 95 % (42-75); Platelet Clumps SLIGHT; Platelet Count 100 thou/uL (130-400); Polychromasia SLIGHT = 2-3 cells (100X) (0-2/hpf); RBC Distribution Width 12.2 % (11.5-14.5); White Blood Cell (WBC) Count 8.5 thou/uL (4.8-10.8)
[2020-12-06] MEDS ORDERED: Dexamethasone 4 MG in Sodium Chloride 0.9% 50 ML IVPB SCH (12:00)
[2020-12-06] MEDS: Dexamethasone 4 mg/ml Vial SLOW IVP SCH ×3 (12:12→23:31)
[2020-12-06 15:32] LABS: SARS-CoV-2 PCR by NAA Not Detected (NotDetected)
[2020-12-06] MEDS: Lorazepam 1 MG TAB PO PRN ×2 (15:55→21:35)
[2020-12-06] MEDS: Arformoterol 15 MCG/2 ML NEB NEB SCH (19:07)
[2020-12-06] MEDS: Budesonide 0.5 MG/2 ML NEB NEB SCH (19:10)
[2020-12-06] MEDS: levETIRAcetam 500 MG TAB PO SCH (21:35)
[2020-12-07] MEDS: Morphine 4 MG/ML VIAL SLOW IVP PRN ×5 (03:24→23:07)
[2020-12-07] MEDS: Dexamethasone 4 mg/ml Vial SLOW IVP SCH (05:50)
[2020-12-07] MEDS: Arformoterol 15 MCG/2 ML NEB NEB SCH ×2 (07:13→19:02)
[2020-12-07] MEDS: Budesonide 0.5 MG/2 ML NEB NEB SCH ×2 (07:14→19:03)
[2020-12-07] MEDS: Famotidine/PF 20 mg/2ml Vial SLOW IVP SCH ×2 (09:07→21:20)
[2020-12-07] MEDS: Amlodipine 10 MG TAB PO SCH (09:07)
[2020-12-07] MEDS: Enoxaparin Sodium 40 MG/0.4 ML SYRINGE SC SCH (09:07)
[2020-12-07] MEDS: levETIRAcetam 500 MG TAB PO SCH ×2 (09:07→21:20)
[2020-12-07] MEDS: Lorazepam 1 MG TAB PO PRN ×3 (09:22→21:19)
[2020-12-07] MEDS: levETIRAcetam in NS 500 MG in Premix Bag 1 BAG IVPB SCH (09:43)
[2020-12-07] MEDS: HumaLOG 300 UNITS/3 ML VIAL SC PRN (12:22)
[2020-12-07] MEDS: Carvedilol 6.25 MG TAB PO SCH (21:19)
[2020-12-07] MEDS: Dexamethasone 4 MG TAB PO SCH (21:20)
[2020-12-07] MEDS: hydrALAZINE 20 MG/ML VIAL SLOW IVP PRN (23:21)
[2020-12-08] MEDS: Morphine 4 MG/ML VIAL SLOW IVP PRN ×2 (03:49→08:44)
[2020-12-08] MEDS: HumaLOG 300 UNITS/3 ML VIAL SC PRN (06:07)
[2020-12-08] MEDS: Arformoterol 15 MCG/2 ML NEB NEB SCH (06:32)
[2020-12-08] MEDS: Budesonide 0.5 MG/2 ML NEB NEB SCH (06:34)
[2020-12-08 07:49] VITALS: BP 133/66; TEMP 97.8
[2020-12-08] MEDS: Carvedilol 6.25 MG TAB PO SCH (08:37)
[2020-12-08] MEDS: Amlodipine 10 MG TAB PO SCH (08:37)
[2020-12-08] MEDS: Famotidine/PF 20 mg/2ml Vial SLOW IVP SCH (08:37)
[2020-12-08] MEDS: Dexamethasone 4 MG TAB PO SCH (08:37)
[2020-12-08] MEDS: levETIRAcetam 500 MG TAB PO SCH (08:37)
[2020-12-08] MEDS: Lorazepam 1 MG TAB PO PRN (08:38)
[2020-12-08] MEDS: Enoxaparin Sodium 40 MG/0.4 ML SYRINGE SC SCH (08:38)
== END 2020-12-08 11:19 | disposition home or self-care (01) | DRG 915 ==
LOC: ERS 22:52 → CCU 23:16 → 2SE 12-06 17:32
PROVIDERS: ADMIT Student in an Organized Health Care Education/Training Program; ATTEND Internal Medicine
PROC: 30233K1 Transfusion of Nonautologous Frozen Plasma into Peripheral Vein, Percutaneous Approach (ICD-10-PCS; principal; 2020-12-05)
DX: T78.3XXA Angioneurotic edema, initial encounter (principal); J96.90 Respiratory failure, unspecified, unspecified whether with hypoxia or hypercapnia; G93.40 Encephalopathy, unspecified; T46.4X5A Adverse effect of angiotensin-converting-enzyme inhibitors, initial encounter; I10 Essential (primary) hypertension; E11.9 Type 2 diabetes mellitus without complications; G40.909 Epilepsy, unspecified, not intractable, without status epilepticus; Z20.822 Contact with and (suspected) exposure to COVID-19; E78.00 Pure hypercholesterolemia, unspecified; F14.10 Cocaine abuse, uncomplicated; F17.210 Nicotine dependence, cigarettes, uncomplicated; F41.9 Anxiety disorder, unspecified; Z88.6 Allergy status to analgesic agent; Z88.2 Allergy status to sulfonamides; Z88.8 Allergy status to other drugs, medicaments and biological substances; Z85.51 Personal history of malignant neoplasm of bladder; Z85.238 Personal history of other malignant neoplasm of thymus; Z79.899 Other long term (current) drug therapy; Z79.84 Long term (current) use of oral hypoglycemic drugs
CPT/HCPCS: 36415; 36416; 36430; 71045; 80048; 85025; 86850; 86900; 86901; 87635; 94640; J0360; J1100; J1650; J1815; J1953; J2270; J7626; J8540; P9059; S0028; U0003; U0005

== ENCOUNTER 2021-04-29 14:39 | Inpatient (IN) | payer MEDICARE ==
[~2021-04-29 14:39] MED LIST: Iopamidol-370 76% 500 ML 1 ML ONE; Lorazepam 1 MG TAB PO PRN
[2021-04-29] MEDS ORDERED: hydrALAZINE 20 MG/ML VIAL SLOW IVP PRN (20:27)
[2021-04-29] MEDS ORDERED: Dextrose 50% Abboject 50 ML SYRINGE SLOW IVP PRN (20:53)
[2021-04-29] MEDS ORDERED: Dextrose 5% in Water 1,000 ML IV PRN (20:53)
[2021-04-29] MEDS ORDERED: Lorazepam 2 MG/ML VIAL IM PRN (21:00)
[2021-04-29] MEDS ORDERED: Ondansetron ODT 4 MG TAB PO PRN (21:00)
[2021-04-29] MEDS ORDERED: Electrolyte Replacement Protocol 1 EACH FS PRN (21:00)
[2021-04-29 21:21] LABS: Anion Gap 16 mmol/L (10-20); BUN (Urea Nitrogen) 7 mg/dL (8.4-25.7); Calc. Creatinine Clearance 104 mL/min (70-130); Calcium 9.1 mg/dL (7.8-10.44); Carbon Dioxide 16 mmol/L (23-31); Chloride 93 mmol/L (98-107); Glucose 88 mg/dL (80-115); Potassium 4.3 mmol/L (3.5-5.1); Sodium 121 mmol/L (136-145)
[2021-04-29] MEDS: Pregabalin 75 MG CAP PO SCH (21:24)
[2021-04-29] MEDS: Carvedilol 6.25 MG TAB PO SCH (21:25)
[2021-04-29] MEDS: Dicyclomine 20 MG TAB PO PRN (21:25)
[2021-04-29] MEDS: cloNIDine 0.1 MG TAB PO SCH (21:25)
[2021-04-29] MEDS: levETIRAcetam 500 MG TAB PO SCH (21:25)
[2021-04-29] MEDS: tiZANidine HCl 4 MG TAB PO PRN (21:30)
[2021-04-29] MEDS: Sodium Chloride 0.9% 1,000 ML IV SCH (21:34)
[2021-04-29] MEDS: QUEtiapine Fumarate ER 50 MG TAB PO SCH (21:55)
[2021-04-29] MEDS: Thiamine HCl 200 MG/2 ML VIAL SLOW IVP SCH (21:55)
[2021-04-29 22:41] LABS: SARS-CoV-2 PCR by NAA Not Detected (NotDetected)
[2021-04-29] MEDS: Morphine 2 MG/ML VIAL SLOW IVP PRN (22:42)
[2021-04-29] MEDS: Lorazepam 1 MG TAB PO SCH (23:47)
[2021-04-30 02:38] LABS: Hemoglobin 11.7 g/dL (14.0-18.0); Mean Corpuscular HGB CONC 36.2 g/dL (32.0-36.0); Mean Corpuscular Hemoglobin 30.6 pg (27.0-31.0); Mean Corpuscular Volume 84.5 fL (78.0-98.0); Mean Platelet Volume 7.4 fL (7.4-10.4); Platelet Count 274 thou/uL (130-400); RBC Distribution Width 12.7 % (11.5-14.5); Red Blood Cell (RBC) Count 3.82 mill/uL (4.70-6.10); White Blood Cell (WBC) Count 5.4 thou/uL (4.8-10.8)
[2021-04-30 03:15] LABS: Eosinophils 1 % (0-10); Hypochromia SLIGHT = 6-15 cells (100X) (0-5/hpf); Lymphocytes 29 % (21-51); MDiff Complete? YES; Monocytes 15 % (0-10); Neutrophil 52 % (42-75); Platelet Morphology Comment Appears Adequate; Reactive Lymphocytes 3 % (0-10)
[2021-04-30 03:20] LABS: Anion Gap 12 mmol/L (10-20); BUN (Urea Nitrogen) 9 mg/dL (8.4-25.7); Calc. Creatinine Clearance 67 mL/min (70-130); Carbon Dioxide 22 mmol/L (23-31); Chloride 92 mmol/L (98-107); Glucose 133 mg/dL (80-115); Potassium 4.3 mmol/L (3.5-5.1); Sodium 122 mmol/L (136-145)
[2021-04-30] MEDS: Morphine 2 MG/ML VIAL SLOW IVP PRN ×3 (04:00→21:49)
[2021-04-30] MEDS: Lorazepam 1 MG TAB PO SCH ×4 (06:17→23:04)
[2021-04-30 08:28] LABS: Anion Gap 12 mmol/L (10-20); BUN (Urea Nitrogen) 10 mg/dL (8.4-25.7); Calc. Creatinine Clearance 83 mL/min (70-130); Calcium 9.2 mg/dL (7.8-10.44); Carbon Dioxide 22 mmol/L (23-31); Chloride 92 mmol/L (98-107); Glucose 110 mg/dL (80-115); Potassium 4.6 mmol/L (3.5-5.1); Sodium 121 mmol/L (136-145)
[2021-04-30] MEDS ORDERED: Folic Acid 1 MG TAB PO SCH (09:00)
[2021-04-30] MEDS: Pregabalin 75 MG CAP PO SCH ×3 (09:36→20:28)
[2021-04-30] MEDS: levETIRAcetam 500 MG TAB PO SCH ×2 (09:37→20:34)
[2021-04-30] MEDS: Carvedilol 6.25 MG TAB PO SCH ×2 (09:37→20:29)
[2021-04-30] MEDS: Multivit, Therapeutic 1 TAB PO SCH (09:37)
[2021-04-30] MEDS: FLUoxetine HCl 20 MG CAP PO SCH (09:37)
[2021-04-30] MEDS: tiZANidine HCl 4 MG TAB PO PRN (09:37)
[2021-04-30] MEDS: Amlodipine 10 MG TAB PO SCH (09:37)
[2021-04-30] MEDS: Folic Acid 1 MG TAB PO SCH (09:37)
[2021-04-30] MEDS: Sodium Chloride 0.9% 1,000 ML IV SCH (09:38)
[2021-04-30] MEDS: cloNIDine 0.1 MG TAB PO SCH (20:34)
[2021-04-30] MEDS: Dicyclomine 20 MG TAB PO PRN (20:34)
[2021-04-30] MEDS: Thiamine HCl 200 MG/2 ML VIAL SLOW IVP SCH (20:35)
[2021-04-30] MEDS: QUEtiapine Fumarate ER 50 MG TAB PO SCH (20:40)
[2021-04-30] MEDS ORDERED: Lorazepam 1 MG TAB PO PRN (21:00)
[2021-05-01] MEDS: Lorazepam 1 MG TAB PO SCH ×2 (05:51→11:40)
[2021-05-01 07:01] LABS: ALT (SGPT) 40 U/L (8-55); AST (SGOT) 36 U/L (5-34); Albumin 3.7 g/dL (3.4-4.8); Alkaline Phosphatase 134 U/L (40-110); Anion Gap 14 mmol/L (10-20); BUN (Urea Nitrogen) 10 mg/dL (8.4-25.7); Bilirubin, Total 0.2 mg/dL (0.2-1.2); Calc. Creatinine Clearance 91 mL/min (70-130); Calcium 9.3 mg/dL (7.8-10.44); Carbon Dioxide 20 mmol/L (23-31); Chloride 101 mmol/L (98-107); Globulin 2.7 g/dL (2.4-3.5); Glucose 93 mg/dL (80-115); Potassium 4.6 mmol/L (3.5-5.1); Protein, Total 6.4 g/dL (5.8-8.1); Sodium 130 mmol/L (136-145)
[2021-05-01] MEDS: Amlodipine 10 MG TAB PO SCH (08:23)
[2021-05-01] MEDS: Pregabalin 75 MG CAP PO SCH ×3 (08:23→20:56)
[2021-05-01] MEDS: Carvedilol 6.25 MG TAB PO SCH ×2 (08:23→21:13)
[2021-05-01] MEDS: Multivit, Therapeutic 1 TAB PO SCH (08:24)
[2021-05-01] MEDS: Folic Acid 1 MG TAB PO SCH (08:24)
[2021-05-01] MEDS: levETIRAcetam 500 MG TAB PO SCH ×2 (08:24→20:56)
[2021-05-01] MEDS: FLUoxetine HCl 20 MG CAP PO SCH (08:24)
[2021-05-01] MEDS: Morphine 2 MG/ML VIAL SLOW IVP PRN ×4 (10:07→22:39)
[2021-05-01] MEDS: tiZANidine HCl 4 MG TAB PO PRN (13:17)
[2021-05-01] MEDS: QUEtiapine Fumarate ER 50 MG TAB PO SCH (20:55)
[2021-05-01] MEDS: cloNIDine 0.1 MG TAB PO SCH (20:55)
[2021-05-01] MEDS: Thiamine HCl 200 MG/2 ML VIAL SLOW IVP SCH (20:57)
[2021-05-01] MEDS: Lorazepam 1 MG TAB PO PRN (22:45)
[2021-05-01] MEDS ORDERED: Lorazepam 0.5 MG TAB PO SCH (23:59)
[2021-05-02] MEDS: Lorazepam 1 MG TAB PO PRN ×2 (06:38→13:11)
[2021-05-02] MEDS: tiZANidine HCl 4 MG TAB PO PRN (06:38)
[2021-05-02 07:07] LABS: Anion Gap 13 mmol/L (10-20); BUN (Urea Nitrogen) 12 mg/dL (8.4-25.7); Calc. Creatinine Clearance 94 mL/min (70-130); Calcium 9.2 mg/dL (7.8-10.44); Carbon Dioxide 24 mmol/L (23-31); Chloride 100 mmol/L (98-107); Glucose 100 mg/dL (80-115); Potassium 4.6 mmol/L (3.5-5.1); Sodium 132 mmol/L (136-145)
[2021-05-02] MEDS: Pregabalin 75 MG CAP PO SCH ×3 (09:21→20:50)
[2021-05-02] MEDS: Multivit, Therapeutic 1 TAB PO SCH (09:23)
[2021-05-02] MEDS: Amlodipine 10 MG TAB PO SCH ×2 (09:23→10:14)
[2021-05-02] MEDS: Thiamine 100 MG TAB PO SCH (09:24)
[2021-05-02] MEDS: levETIRAcetam 500 MG TAB PO SCH ×2 (09:24→20:50)
[2021-05-02] MEDS: Folic Acid 1 MG TAB PO SCH (09:24)
[2021-05-02] MEDS: Carvedilol 6.25 MG TAB PO SCH ×3 (09:24→20:50)
[2021-05-02] MEDS: FLUoxetine HCl 20 MG CAP PO SCH (09:25)
[2021-05-02] MEDS: Acetaminophen 325 MG TAB PO PRN ×2 (11:32→20:50)
[2021-05-02] MEDS: QUEtiapine Fumarate ER 50 MG TAB PO SCH (20:51)
[2021-05-02 22:39] VITALS: BMI 28.5
[2021-05-03 06:36] LABS: #Basophils 0.1 thou/uL (0.0-0.2); #Eosinphils 0.1 thou/uL (0.0-0.7); #Lymphocytes 2.5 thou/uL (1.20-3.40); #Monocytes 0.8 thou/uL (0.11-0.59); #Neutrophils 1.9 thou/uL (1.40-6.50); %Basophils 1.1 % (0.0-1.0); %Eosinophils 2.1 % (0.0-10.0); %Lymphocytes 46.9 % (21.0-51.0); %Monocytes 14.3 % (0.0-10.0); %Neutrophils 35.6 % (42.0-75.0); Hemoglobin 12.3 g/dL (14.0-18.0); Mean Corpuscular HGB CONC 34.3 g/dL (32.0-36.0); Mean Corpuscular Hemoglobin 30.3 pg (27.0-31.0); Mean Corpuscular Volume 88.2 fL (78.0-98.0); Mean Platelet Volume 7.4 fL (7.4-10.4); Platelet Count 274 thou/uL (130-400); RBC Distribution Width 13.1 % (11.5-14.5); Red Blood Cell (RBC) Count 4.05 mill/uL (4.70-6.10); White Blood Cell (WBC) Count 5.4 thou/uL (4.8-10.8)
[2021-05-03 06:56] LABS: Anion Gap 10 mmol/L (10-20); BUN (Urea Nitrogen) 12 mg/dL (8.4-25.7); Calc. Creatinine Clearance 90 mL/min (70-130); Calcium 9.5 mg/dL (7.8-10.44); Carbon Dioxide 27 mmol/L (23-31); Chloride 100 mmol/L (98-107); Glucose 97 mg/dL (80-115); Potassium 4.3 mmol/L (3.5-5.1); Sodium 133 mmol/L (136-145)
[2021-05-03] MEDS: Amlodipine 10 MG TAB PO SCH (08:32)
[2021-05-03] MEDS: FLUoxetine HCl 20 MG CAP PO SCH (08:32)
[2021-05-03] MEDS: Multivit, Therapeutic 1 TAB PO SCH (08:32)
[2021-05-03] MEDS: levETIRAcetam 500 MG TAB PO SCH ×2 (08:32→20:24)
[2021-05-03] MEDS: Pregabalin 75 MG CAP PO SCH ×3 (08:33→20:24)
[2021-05-03] MEDS: Folic Acid 1 MG TAB PO SCH (08:34)
[2021-05-03] MEDS: Thiamine 100 MG TAB PO SCH (08:34)
[2021-05-03] MEDS: Carvedilol 6.25 MG TAB PO SCH ×2 (08:34→20:28)
[2021-05-03] MEDS ORDERED: Lorazepam 0.5 MG TAB PO PRN (09:00)
[2021-05-03] MEDS ORDERED: Magnevist 469MG/ML 20 ML VIAL ONE (11:21)
[2021-05-03] MEDS ORDERED: PROPOFOL 200 MG/20 ML VIAL ONE (11:44)
[2021-05-03] MEDS ORDERED: Lidocaine 1% PF 5 ML VIAL ONE (11:44)
[2021-05-03] MEDS ORDERED: Promethazine HCl 25 MG/ML VIAL IVPB PRN (12:12)
[2021-05-03] MEDS ORDERED: Ondansetron HCl/PF 4 MG/2 ML Vial IVP PRN (12:12)
[2021-05-03] MEDS ORDERED: Promethazine HCl 25 MG/ML VIAL IM PRN (12:12)
[2021-05-03] MEDS ORDERED: Fentanyl 100 MCG/2 ML VIAL ONE (12:26)
[2021-05-03] MEDS: Acetaminophen 325 MG TAB PO PRN ×2 (15:43→20:23)
[2021-05-03] MEDS: tiZANidine HCl 4 MG TAB PO PRN (17:28)
[2021-05-03] MEDS: QUEtiapine Fumarate ER 50 MG TAB PO SCH (20:26)
[2021-05-04] MEDS: Acetaminophen 325 MG TAB PO PRN ×4 (02:40→18:23)
[2021-05-04] MEDS: tiZANidine HCl 4 MG TAB PO PRN ×2 (09:00→14:55)
[2021-05-04] MEDS: Carvedilol 6.25 MG TAB PO SCH ×2 (09:01→20:12)
[2021-05-04] MEDS: Amlodipine 10 MG TAB PO SCH (09:01)
[2021-05-04] MEDS: Pregabalin 75 MG CAP PO SCH ×3 (09:02→20:11)
[2021-05-04] MEDS: FLUoxetine HCl 20 MG CAP PO SCH (09:03)
[2021-05-04] MEDS: Thiamine 100 MG TAB PO SCH (09:03)
[2021-05-04] MEDS: levETIRAcetam 500 MG TAB PO SCH ×2 (09:03→20:12)
[2021-05-04] MEDS: Folic Acid 1 MG TAB PO SCH (09:03)
[2021-05-04] MEDS: Multivit, Therapeutic 1 TAB PO SCH (09:03)
[2021-05-04 09:24] LABS: Chloride 102 mmol/L (98-107); Potassium 4.4 mmol/L (3.5-5.1); Sodium 131 mmol/L (136-145)
[2021-05-04 10:04] LABS: BUN (Urea Nitrogen) 9 mg/dL (8.4-25.7); Calc. Creatinine Clearance 96 mL/min (70-130); Calcium 9.8 mg/dL (7.8-10.44); Carbon Dioxide 29 mmol/L (23-31); Glucose 130 mg/dL (80-115)
[2021-05-04 10:10] LABS: Anion Gap 4 mmol/L (10-20)
[2021-05-04] MEDS: QUEtiapine Fumarate ER 50 MG TAB PO SCH (20:11)
[2021-05-04] MEDS: Lorazepam 1 MG TAB PO PRN (20:11)
[2021-05-05] MEDS: Acetaminophen 325 MG TAB PO PRN ×3 (02:42→14:23)
[2021-05-05] MEDS: Lorazepam 1 MG TAB PO PRN ×2 (02:42→17:57)
[2021-05-05] MEDS: HumaLOG 300 UNITS/3 ML VIAL SC PRN (06:42)
[2021-05-05] MEDS: FLUoxetine HCl 20 MG CAP PO SCH (09:02)
[2021-05-05] MEDS: Pregabalin 75 MG CAP PO SCH ×3 (09:02→20:47)
[2021-05-05] MEDS: levETIRAcetam 500 MG TAB PO SCH ×2 (09:06→20:47)
[2021-05-05] MEDS: Amlodipine 10 MG TAB PO SCH (09:06)
[2021-05-05] MEDS: Carvedilol 6.25 MG TAB PO SCH ×2 (09:06→20:48)
[2021-05-05] MEDS: Multivit, Therapeutic 1 TAB PO SCH (09:07)
[2021-05-05] MEDS: Folic Acid 1 MG TAB PO SCH (09:07)
[2021-05-05] MEDS: Thiamine 100 MG TAB PO SCH (09:07)
[2021-05-05 09:53] LABS: Anion Gap 12 mmol/L (10-20); BUN (Urea Nitrogen) 7 mg/dL (8.4-25.7); Calc. Creatinine Clearance 96 mL/min (70-130); Calcium 9.5 mg/dL (7.8-10.44); Carbon Dioxide 25 mmol/L (23-31); Chloride 101 mmol/L (98-107); Glucose 60 mg/dL (80-115); Potassium 4.3 mmol/L (3.5-5.1); Sodium 134 mmol/L (136-145)
[2021-05-05] MEDS: tiZANidine HCl 4 MG TAB PO PRN (12:05)
[2021-05-05] MEDS: Dicyclomine 20 MG TAB PO PRN (17:57)
[2021-05-05] MEDS: QUEtiapine Fumarate ER 50 MG TAB PO SCH (20:48)
[2021-05-06] MEDS: Lorazepam 1 MG TAB PO PRN ×4 (02:52→23:36)
[2021-05-06] MEDS: HumaLOG 300 UNITS/3 ML VIAL SC PRN (06:30)
[2021-05-06] MEDS: Pregabalin 75 MG CAP PO SCH ×3 (08:23→20:49)
[2021-05-06] MEDS: Multivit, Therapeutic 1 TAB PO SCH (08:23)
[2021-05-06] MEDS: Acetaminophen 325 MG TAB PO PRN ×3 (08:23→17:03)
[2021-05-06] MEDS: FLUoxetine HCl 20 MG CAP PO SCH (08:23)
[2021-05-06] MEDS: Carvedilol 6.25 MG TAB PO SCH ×2 (08:24→20:50)
[2021-05-06] MEDS: Amlodipine 10 MG TAB PO SCH (08:24)
[2021-05-06] MEDS: Thiamine 100 MG TAB PO SCH (08:24)
[2021-05-06] MEDS: Folic Acid 1 MG TAB PO SCH (08:24)
[2021-05-06] MEDS: levETIRAcetam 500 MG TAB PO SCH ×2 (08:24→20:51)
[2021-05-06] MEDS: tiZANidine HCl 4 MG TAB PO PRN ×2 (14:51→20:49)
[2021-05-06] MEDS: Gabapentin 100 MG CAP PO SCH (20:48)
[2021-05-06] MEDS: QUEtiapine Fumarate ER 50 MG TAB PO SCH (20:50)
[2021-05-07] MEDS: Acetaminophen 325 MG TAB PO PRN ×3 (02:27→17:27)
[2021-05-07] MEDS: Folic Acid 1 MG TAB PO SCH (08:42)
[2021-05-07] MEDS: FLUoxetine HCl 20 MG CAP PO SCH (08:42)
[2021-05-07] MEDS: Thiamine 100 MG TAB PO SCH (08:42)
[2021-05-07] MEDS: Amlodipine 10 MG TAB PO SCH (08:42)
[2021-05-07] MEDS: Multivit, Therapeutic 1 TAB PO SCH (08:42)
[2021-05-07] MEDS: Carvedilol 6.25 MG TAB PO SCH ×2 (08:43→20:31)
[2021-05-07] MEDS: Pregabalin 75 MG CAP PO SCH ×3 (08:43→20:31)
[2021-05-07] MEDS: levETIRAcetam 500 MG TAB PO SCH ×2 (08:43→20:32)
[2021-05-07] MEDS: Lorazepam 1 MG TAB PO PRN ×2 (10:05→17:28)
[2021-05-07] MEDS: tiZANidine HCl 4 MG TAB PO PRN (12:51)
[2021-05-07 16:56] LABS: SARS-CoV-2 PCR by NAA Not Detected (NotDetected)
[2021-05-07] MEDS: Gabapentin 100 MG CAP PO SCH (20:30)
[2021-05-07] MEDS: QUEtiapine Fumarate ER 50 MG TAB PO SCH (20:31)
[2021-05-08 08:09] VITALS: BP 139/75; TEMP 98.1
[2021-05-08] MEDS: Pregabalin 75 MG CAP PO SCH (08:54)
[2021-05-08] MEDS: Folic Acid 1 MG TAB PO SCH (08:54)
[2021-05-08] MEDS: levETIRAcetam 500 MG TAB PO SCH (08:55)
[2021-05-08] MEDS: Multivit, Therapeutic 1 TAB PO SCH (08:55)
[2021-05-08] MEDS: Amlodipine 10 MG TAB PO SCH (08:55)
[2021-05-08] MEDS: Carvedilol 6.25 MG TAB PO SCH (08:55)
[2021-05-08] MEDS: Thiamine 100 MG TAB PO SCH (08:55)
[2021-05-08] MEDS: FLUoxetine HCl 20 MG CAP PO SCH (08:55)
[2021-05-08] MEDS: Acetaminophen 325 MG TAB PO PRN (10:39)
[2021-05-08] MEDS: Lorazepam 1 MG TAB PO PRN (10:39)
== END 2021-05-08 10:52 | DRG 74 ==
LOC: INTOOBSV 17:41 → SJJU 17:41 → OBSVTOIN 04-30 16:25
PROVIDERS: ADMIT Internal Medicine; ATTEND Internal Medicine
PROC: 0DB58ZX Excision of Esophagus, Via Natural or Artificial Opening Endoscopic, Diagnostic (ICD-10-PCS; principal; 2021-05-03)
PROC: 0DC58ZZ Extirpation of Matter from Esophagus, Via Natural or Artificial Opening Endoscopic (ICD-10-PCS; 2021-05-03)
DX: G62.1 Alcoholic polyneuropathy (principal); F33.1 Major depressive disorder, recurrent, moderate; R45.851 Suicidal ideations; E87.1 Hypo-osmolality and hyponatremia; F15.23 Other stimulant dependence with withdrawal; N17.9 Acute kidney failure, unspecified; E87.2 Acidosis; Z66 Do not resuscitate; Z20.822 Contact with and (suspected) exposure to COVID-19; I10 Essential (primary) hypertension; K58.9 Irritable bowel syndrome, unspecified; F14.10 Cocaine abuse, uncomplicated; F10.10 Alcohol abuse, uncomplicated; I16.0 Hypertensive urgency; F41.9 Anxiety disorder, unspecified; G40.909 Epilepsy, unspecified, not intractable, without status epilepticus; R63.4 Abnormal weight loss; R11.2 Nausea with vomiting, unspecified; F11.10 Opioid abuse, uncomplicated; D63.8 Anemia in other chronic diseases classified elsewhere; R60.9 Edema, unspecified; G89.29 Other chronic pain; Z88.5 Allergy status to narcotic agent; Z88.2 Allergy status to sulfonamides; Z88.8 Allergy status to other drugs, medicaments and biological substances; Z79.84 Long term (current) use of oral hypoglycemic drugs; Z79.899 Other long term (current) drug therapy; Z90.49 Acquired absence of other specified parts of digestive tract; Z83.3 Family history of diabetes mellitus; Z82.49 Family history of ischemic heart disease and other diseases of the circulatory system; Z81.8 Family history of other mental and behavioral disorders; Z71.51 Drug abuse counseling and surveillance of drug abuser; E11.9 Type 2 diabetes mellitus without complications
CPT/HCPCS: 36415; 36416; 74177; 74183; 80048; 80053; 83690; 83930; 83935; 84300; 85025; 88305; 96374; 96376; A9579; G0378; J0360; J1815; J2270; J2704; J3010; J3411; J7050; Q9967; U0003; U0005

== ENCOUNTER 2021-07-20 18:16 | Emergency (ER) | payer MEDICARE ==
[2021-07-20 19:18] LABS: #Eosinphils 0.2 thou/uL (0.0-0.7); #Lymphocytes 2.8 thou/uL (1.20-3.40); #Monocytes 0.9 thou/uL (0.11-0.59); #Neutrophils 2.2 thou/uL (1.40-6.50); %Basophils 0.8 % (0.0-1.0); %Lymphocytes 45.8 % (21.0-51.0); %Monocytes 14.4 % (0.0-10.0); Hemoglobin 10.9 g/dL (14.0-18.0); Mean Corpuscular HGB CONC 34.4 g/dL (32.0-36.0); Mean Corpuscular Hemoglobin 29.9 pg (27.0-31.0); Mean Corpuscular Volume 86.8 fL (78.0-98.0); Mean Platelet Volume 8.1 fL (7.4-10.4); Platelet Count 257 thou/uL (130-400); RBC Distribution Width 12.6 % (11.5-14.5); Red Blood Cell (RBC) Count 3.66 mill/uL (4.70-6.10)
[2021-07-20 19:33] LABS: Amphetamine Not Detected (NotDetected); Barbiturates Screen Not Detected (NotDetected); Benzodiazepine Screen Detected (NotDetected); Cocaine Metabolite Screen Not Detected (NotDetected); Methadone Not Detected (NotDetected); Methamphetamine Not Detected (NotDetected); Opiate Screen Detected (NotDetected); Oxycodone Screen Not Detected (NotDetected); Phencyclidine (PCP) Not Detected (NotDetected); THC/Cannabinoid Screen Not Detected (NotDetected); Tricyclic Screen Not Detected (NotDetected)
[2021-07-20 19:38] LABS: Acetaminophen Less than 6.0 mcg/mL (10.0-30.0); Alcohol Less than 10 mg/dL (Less than 10); Salicylate Less than 8.0 mg/dL (15.0-30.0)
[2021-07-20 19:39] LABS: ALT (SGPT) 62 U/L (8-55); AST (SGOT) 37 U/L (5-34); Albumin 4.1 g/dL (3.4-4.8); Alkaline Phosphatase 108 U/L (40-110); Anion Gap 14 mmol/L (10-20); BUN (Urea Nitrogen) 13 mg/dL (8.4-25.7); Bilirubin, Total 0.2 mg/dL (0.2-1.2); CK (CPK) 158 U/L (30-200); Calc. Creatinine Clearance 0 mL/min (70-130); Calcium 9.8 mg/dL (7.8-10.44); Carbon Dioxide 25 mmol/L (23-31); Chloride 102 mmol/L (98-107); Globulin 3.1 g/dL (2.4-3.5); Glucose 94 mg/dL (80-115); Potassium 4.3 mmol/L (3.5-5.1); Protein, Total 7.2 g/dL (5.8-8.1); Sodium 137 mmol/L (136-145)
[2021-07-20 20:34] LABS: Bilirubin Negative (Negative); Blood, Urine Negative (Negative); Clarity Clear (Clear); Glucose, Urine (Dipstick) Normal (Negative); Ketone, Urine Negative (Negative); Leukocyte Negative Leu/uL (Negative); Nitrite Negative (Negative); Protein, Urine (Dipstick) Negative (Neg-Trace); Specific Gravity, Urine 1.005 (1.002-1.036); Urobilinogen Normal mg/dL (Less than 2)
[2021-07-20] MEDS ORDERED: Acetaminophen 500 MG TAB ONE (21:32)
[2021-07-20] MEDS ORDERED: Morphine 4 MG/ML VIAL ONE (22:22)
[2021-07-21] MEDS ORDERED: Acetaminophen 500 MG TAB ONE (08:49)
[2021-07-21] MEDS ORDERED: Morphine 4 MG/ML VIAL ONE (10:08)
[2021-07-21] MEDS ORDERED: Mag-Al 1200 mg/1200 mg/30 ML UDCUP ONE (10:10)
[2021-07-21] MEDS ORDERED: Lidocaine Viscous Sol 2% 15 ml UD Cup ONE (10:10)
[2021-07-21] MEDS ORDERED: Lorazepam 1 MG TAB ONE (15:33)
[2021-07-21] MEDS ORDERED: Gabapentin 400 MG CAP PO SCH ×2 (15:45→21:00)
[2021-07-21] MEDS ORDERED: Escitalopram Oxalate 20 mg Tablet PO SCH (15:45)
[2021-07-21] MEDS ORDERED: OXcarbazepine 150 MG TAB PO SCH ×2 (16:00→21:00)
[2021-07-21] MEDS ORDERED: glyBURIDE 5 MG TAB PO SCH (16:00)
[2021-07-21] MEDS ORDERED: Cyproheptadine 4 MG TAB PO SCH ×2 (16:00→21:00)
[2021-07-21] MEDS ORDERED: Pregabalin 75 MG CAP PO SCH ×2 (16:00→21:00)
[2021-07-21] MEDS ORDERED: Carvedilol 6.25 MG TAB PO SCH ×2 (16:15→21:00)
[2021-07-21] MEDS ORDERED: Amlodipine 10 MG TAB PO SCH (16:15)
[2021-07-21] MEDS ORDERED: Alogliptin 25 MG TAB PO SCH (16:15)
[2021-07-21] MEDS ORDERED: FLUoxetine HCl 20 MG CAP PO SCH (16:15)
[2021-07-21] MEDS ORDERED: cloNIDine 0.1 MG TAB PO SCH (21:00)
[2021-07-22 01:12] LABS: SARS-CoV-2 NAA Rapid Test Not Detected (NotDetected)
[2021-07-22] MEDS ORDERED: glyBURIDE 5 MG TAB PO SCH (07:30)
[2021-07-22] MEDS ORDERED: Tamsulosin HCl 0.4 MG CAP PO SCH (09:00)
[2021-07-22] MEDS ORDERED: FLUoxetine HCl 20 MG CAP PO SCH (09:00)
[2021-07-22] MEDS ORDERED: Alogliptin 25 MG TAB PO SCH (09:00)
[2021-07-22] MEDS ORDERED: Escitalopram Oxalate 20 mg Tablet PO SCH (09:00)
[2021-07-22] MEDS ORDERED: Amlodipine 10 MG TAB PO SCH (09:00)
[2021-07-22] MEDS ORDERED: Lorazepam 1 MG TAB ONE ×3 (10:31→19:29)
[2021-07-22] MEDS ORDERED: Acetaminophen 500 MG TAB ONE (10:31)
[2021-07-22] MEDS ORDERED: Famotidine 20 MG TAB ONE (14:19)
[2021-07-22] MEDS ORDERED: Dicyclomine 20 MG TAB ONE (14:19)
[2021-07-22] MEDS ORDERED: Lorazepam 0.5 MG TAB PO SCH (15:15)
[2021-07-22] MEDS ORDERED: Methocarbamol 500 MG TAB PO SCH ×2 (15:15→20:00)
[2021-07-22] MEDS ORDERED: Famotidine 20 MG TAB PO SCH (15:15)
[2021-07-22] MEDS ORDERED: Dicyclomine 20 MG TAB PO SCH (15:15)
[2021-07-22] MEDS ORDERED: hydrOXYzine 25 MG TAB ONE (19:28)
[2021-07-22] MEDS ORDERED: levETIRAcetam 500 MG TAB PO SCH (20:00)
[2021-07-22] MEDS ORDERED: Zolpidem Tartrate 5 MG TAB PO PRN (20:27)
[2021-07-22] MEDS ORDERED: Zolpidem Tartrate 5 MG TAB ONE (21:06)
[2021-07-23] MEDS ORDERED: hydrOXYzine 25 MG TAB ONE ×2 (08:21)
[2021-07-23] MEDS ORDERED: Amlodipine 5 MG TAB ONE (08:21)
[2021-07-23] MEDS ORDERED: Lorazepam 1 MG TAB ONE (08:34)
[2021-07-23] MEDS ORDERED: Methocarbamol 500 MG TAB PO SCH (09:00)
[2021-07-23] MEDS ORDERED: levETIRAcetam 500 MG TAB PO SCH (21:00)
== END 2021-07-23 11:15 ==
LOC: ERS 18:16
DX: R45.851 Suicidal ideations (principal); R45.850 Homicidal ideations; R45.1 Restlessness and agitation; G89.29 Other chronic pain; Z20.822 Contact with and (suspected) exposure to COVID-19; E11.9 Type 2 diabetes mellitus without complications; I10 Essential (primary) hypertension; E78.00 Pure hypercholesterolemia, unspecified; Z79.84 Long term (current) use of oral hypoglycemic drugs
CPT/HCPCS: 80306; 80307; 81003; 82550; U0002; 36415; 80053; 84443; 85025; 96372; 99285; J2270